=== PATIENT | female | born 1970 | race Caucasian/White ===

== ENCOUNTER 2019-11-17 15:09 | Outpatient (REF) | payer OTHER, SELFPAY ==
[2019-11-17 16:37] LABS: MANUAL DIFF FLAG NO
[2019-11-17 16:39] LABS: Basophils Absolute Auto 0.1 X10*3/uL (0.0-0.2); Basophils Percent Auto 1.2 % (0-2); Hematocrit 36.7 % (37-47); Hemoglobin 11.7 g/dl (12.0-16.0); Imm Gran Abs Auto 0.01 X10*3/uL (0.00-0.03); Imm Gran Pct Auto 0.2 % (0.0-0.4); Lymphocytes Absolute Auto 1.5 X10*3/uL (1.2-4.9); Lymphocytes Percent Auto 36.3 % (20-40); Mean Corpuscular HGB Conc 31.9 g/dl (31.0-35.0); Mean Corpuscular Hemoglobin 28.6 pg (27.0-33.0); Mean Corpuscular Volume 89.7 fL (80-98); Monocytes Absolute Auto 0.4 X10*3/uL (0.1-1.2); Monocytes Percent Auto 10.9 % (2-11); Neutrophils Percent Auto 50.4 % (45-73); Platelet Count 270 X10*3/uL (160-400); Red Blood Count 4.09 X10*6/uL (4.20-5.50); Red Cell Distribution Width 12.9 % (11.0-16.0)
[2019-11-17 17:07] LABS: Alanine Aminotransferase 25 U/L (0-31); Albumin Level 4.3 g/dL (3.5-5.0); Alkaline Phosphatase 85 U/L (39-117); Anion Gap 11 (12-20); Aspartate Amino Transferase 24 U/L (5-31); Bilirubin Total 0.5 mg/dL (0.0-1.0); Blood Urea Nitrogen 14 mg/dL (9-16); Calcium 9.3 mg/dL (8.4-10.2); Carbon Dioxide 29 mmol/L (22-29); Chloride 105 mmol/L (96-108); Estimated Glomerular Filt Rate > 60; Glucose Random 98 mg/dL (60-115); Sodium 141 mmol/L (135-145); Total Protein 7.2 g/dL (6.5-8.0)
[2019-11-17 17:29] LABS: TSH reflex Free T4 1.68 mIU/mL (0.32-4.0)
[2019-11-17 18:19] LABS: Vitamin B12 362 pg/mL (200-900)
== END 2019-11-17 15:10 | disposition home or self-care (01) ==
LOC: HO.HMGCLDS 15:09
PROVIDERS: PCP Internal Medicine; Visit Provider Internal Medicine
DX: R53.83 Other fatigue (principal); M54.12 Radiculopathy, cervical region; D51.0 Vitamin B12 deficiency anemia due to intrinsic factor deficiency
CPT/HCPCS: 36415; 80053; 82607; 84443; 85025

== ENCOUNTER 2020-06-04 14:08 | Outpatient (REF) | payer OTHER, SELFPAY ==
[2020-06-04 16:19] LABS: MANUAL DIFF FLAG NO
[2020-06-04 16:31] LABS: Basophils Percent Auto 0.8 % (0-2); Eosinophils Percent Auto 0.6 % (0-4); Hematocrit 36.2 % (37-47); Hemoglobin 11.5 g/dl (12.0-16.0); Imm Gran Abs Auto 0.01 X10*3/uL (0.00-0.03); Imm Gran Pct Auto 0.3 % (0.0-0.4); Lymphocytes Absolute Auto 0.8 X10*3/uL (1.2-4.9); Lymphocytes Percent Auto 21.3 % (20-40); Mean Corpuscular HGB Conc 31.8 g/dl (31.0-35.0); Mean Corpuscular Hemoglobin 28.1 pg (27.0-33.0); Mean Corpuscular Volume 88.5 fL (80-98); Mean Platelet Volume 10.9 fL (9.4-12.3); Monocytes Absolute Auto 0.3 X10*3/uL (0.1-1.2); Monocytes Percent Auto 9.1 % (2-11); Neutrophils Absolute Auto 2.5 X10*3/uL (2.0-8.3); Neutrophils Percent Auto 67.9 % (45-73); Platelet Count 294 X10*3/uL (160-400); Red Blood Count 4.09 X10*6/uL (4.20-5.50); White Blood Count 3.6 X10*3/uL (4.8-10.8)
[2020-06-04 16:53] LABS: Amphetamine Screen Urine Not Detected (Not Detect); Barbiturates, Urine Not Detected (Not Detect); Benzodiazepines Screen Urine Not Detected (Not Detect); Cannabinoid Screen Urine Not Detected (Not Detect); Cocaine Screen Urine Not Detected (Not Detect); Opiate Screen Urine Not Detected (Not Detect); Phencyclidine Screen Urine Not Detected (Not Detect)
[2020-06-04 16:57] LABS: Alanine Aminotransferase 12 U/L (0-31); Albumin Level 4.3 g/dL (3.5-5.0); Alkaline Phosphatase 92 U/L (39-117); Anion Gap 13 (12-20); Aspartate Amino Transferase 15 U/L (5-31); Bilirubin Direct 0.2 mg/dL (0.0-0.5); Bilirubin Total 0.3 mg/dL (0.0-1.0); Blood Urea Nitrogen 15 mg/dL (9-16); Calcium 9.1 mg/dL (8.4-10.2); Carbon Dioxide 25 mmol/L (22-29); Chloride 107 mmol/L (96-108); Estimated Glomerular Filt Rate > 60; Glucose Random 108 mg/dL (60-115); Sodium 141 mmol/L (135-145); Total Protein 7.1 g/dL (6.5-8.0)
[2020-06-04 17:19] LABS: TSH reflex Free T4 0.83 uIU/mL (0.32-4.0)
[2020-06-04 17:38] LABS: Vitamin B12 294 pg/mL (200-900)
[2020-06-08 06:47] LABS: Codeine, Ur NEGATIVE ng/mL (<50); Hydrocodone, Ur NEGATIVE ng/mL (<50); Hydromorphone, Ur NEGATIVE ng/mL (<50); Morphine, Ur NEGATIVE ng/mL (<50); Norhydrocodone, Ur NEGATIVE ng/mL (<50); Noroxycodone, Ur NEGATIVE ng/mL (<50); Oxycodone, Ur NEGATIVE ng/mL (<50); Oxymorphone, Ur NEGATIVE ng/mL (<50)
== END 2020-06-04 14:09 | disposition home or self-care (01) ==
LOC: HO.HMGCLDS 14:08
PROVIDERS: PCP Internal Medicine; Visit Provider Internal Medicine
DX: E53.8 Deficiency of other specified B group vitamins (principal); F11.20 Opioid dependence, uncomplicated; G89.4 Chronic pain syndrome; M54.12 Radiculopathy, cervical region; F33.41 Major depressive disorder, recurrent, in partial remission
CPT/HCPCS: 80048; 80076; 80307; 80364; 80365; 82607; 84443; 85025

== ENCOUNTER 2021-07-16 19:47 | Emergency (ER) | payer OTHER, SELFPAY ==
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
[2021-07-16 19:53] VITALS: BP 146/98; PULSE 114; O2SAT 100
[2021-07-16 19:59] VITALS: BP 158/111; PULSE 100; RESP 17; TEMP 37.2; O2SAT 99; BMI 19.0
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
--- NOTE | 2021-07-16 22:04 | PC.NURSE ---
PT REMOVED HARD COLLAR. REFUSES TO KEEP COLLAR ON. DR MCCRAY AWARE. PAIN MED REQUESTED WAITING MD ORDER.
[2021-07-16] MEDS: oxyCODONE HCl Immed Release 5 MG TABLET 10 MG PO (22:12)
[2021-07-16 22:21] VITALS: BP 154/74; PULSE 74; RESP 18; TEMP 36.8; O2SAT 100
== END 2021-07-16 23:20 | disposition home or self-care (01) ==
PROVIDERS: Emergency Provider Internal Medicine; PCP Internal Medicine
DX: S16.1XXA Strain of muscle, fascia and tendon at neck level, initial encounter (principal); S00.12XA Contusion of left eyelid and periocular area, initial encounter; D68.61 Antiphospholipid syndrome; Z86.718 Personal history of other venous thrombosis and embolism; Z79.01 Long term (current) use of anticoagulants; V89.2XXA Person injured in unspecified motor-vehicle accident, traffic, initial encounter; Y93.9 Activity, unspecified; Y92.410 Unspecified street and highway as the place of occurrence of the external cause; Y99.9 Unspecified external cause status
CPT/HCPCS: 70450; 72125; 99284

== ENCOUNTER 2021-11-02 15:51 | Outpatient (REF) | payer OTHER, SELFPAY ==
[2021-11-03 06:07] LABS: CT PCR NOT DETECTED (Not Detect.); NG PCR NOT DETECTED (Not Detect.)
[2021-11-03 13:11] LABS: BV Int Neg Control Negative (Negative); BV Int Pos Control Positive (Positive)
[2021-11-08 04:46] LABS: HPV mRNA E6/E7 rflx Detected (Not Detected)
[2021-11-08 04:56] LABS: HPV 16 RNA NOT DETECTED (NOT DETECTED)
== END 2021-11-02 15:52 | disposition home or self-care (01) ==
LOC: HO.LNP 15:51
PROVIDERS: Visit Provider Advanced Practice Midwife
DX: Z01.419 Encounter for gynecological examination (general) (routine) without abnormal findings (principal); Z11.51 Encounter for screening for human papillomavirus (HPV); Z11.3 Encounter for screening for infections with a predominantly sexual mode of transmission
CPT/HCPCS: 87480; 87491; 87510; 87591; 87624; 87625; 87660; 88142

== ENCOUNTER 2022-07-31 12:26 | Outpatient (REF) | payer OTHER, SELFPAY ==
[2022-07-31 14:06] LABS: MANUAL DIFF FLAG NO
[2022-07-31 14:20] LABS: Basophils Absolute Auto 0.1 X10*3/uL (0.0-0.2); Basophils Percent Auto 1.4 % (0-2); Eosinophils Absolute Auto 0.2 X10*3/uL (0.0-0.4); Eosinophils Percent Auto 4.1 % (0-4); Hemoglobin 11.7 g/dl (12.0-16.0); Imm Gran Abs Auto 0.01 X10*3/uL (0.00-0.03); Imm Gran Pct Auto 0.2 % (0.0-0.4); Lymphocytes Absolute Auto 1.3 X10*3/uL (1.2-4.9); Mean Corpuscular HGB Conc 32.5 g/dl (31.0-35.0); Mean Corpuscular Hemoglobin 28.1 pg (27.0-33.0); Mean Corpuscular Volume 86.5 fL (80.0-98.0); Mean Platelet Volume 11.8 fL (9.4-12.3); Monocytes Absolute Auto 0.6 X10*3/uL (0.1-1.2); Monocytes Percent Auto 13.5 % (2-11); Neutrophils Absolute Auto 2.1 x10*3/uL (2.0-8.3); Neutrophils Percent Auto 50.8 % (45-73); Platelet Count 246 X10*3/uL (160-400); Red Blood Count 4.16 X10*6/uL (4.20-5.50); Red Cell Distribution Width 13.2 % (11.0-16.0); White Blood Count 4.2 X10*3/uL (4.8-10.8)
[2022-07-31 14:39] LABS: Alanine Aminotransferase 13 U/L (0-31); Albumin Level 4.1 g/dL (3.5-5.0); Alkaline Phosphatase 95 U/L (39-117); Anion Gap 13 (12-20); Aspartate Amino Transferase 18 U/L (5-31); Bilirubin Total 0.5 mg/dL (0.0-1.0); Blood Urea Nitrogen 12 mg/dL (9-16); Calcium 9.2 mg/dL (8.4-10.2); Carbon Dioxide 25 mmol/L (22-29); Chloride 105 mmol/L (96-108); Estimated Glomerular Filt Rate > 60; Glucose Random 88 mg/dL (60-115); Potassium 3.6 mmol/L (3.3-5.1); Sodium 139 mmol/L (135-145); Total Protein 7.5 g/dL (6.5-8.0)
[2022-07-31 14:42] LABS: TSH reflex Free T4 1.12 uIU/mL (0.32-4.0)
[2022-07-31 14:53] LABS: Vitamin B12 698 pg/mL (200-900)
[2022-08-04 16:38] LABS: Vitamin D 25-OH, D2 <4 ng/mL; Vitamin D 25-OH, D3 15 ng/mL; Vitamin D 25-OH, Total 15 ng/mL (30-100)
== END 2022-07-31 12:27 | disposition home or self-care (01) ==
LOC: HO.HMGCLDS 12:26
PROVIDERS: PCP Internal Medicine; Visit Provider Internal Medicine
DX: E53.8 Deficiency of other specified B group vitamins (principal); F33.41 Major depressive disorder, recurrent, in partial remission; F41.1 Generalized anxiety disorder; M54.12 Radiculopathy, cervical region; M54.2 Cervicalgia; R10.13 Epigastric pain; G43.909 Migraine, unspecified, not intractable, without status migrainosus
CPT/HCPCS: 36415; 80053; 82306; 82607; 84443; 85025

== ENCOUNTER 2022-10-06 08:06 | Outpatient (AMB) | payer OTHER, SELFPAY ==
--- NOTE | 2022-10-06 08:07 | A.OFFPC_ITS ---
Intake Visit Reasons: 3m follow up migraines/ Android/[phone] Intake Note: Pt is here today for 3 months follow up visit. Allergies penicillin V Allergy (Unknown, Verified 10/06/22 08:09) unknown - childhood Penicillins Allergy (Unknown, Verified 10/06/22 08:09) unknown Medication List - Last Reconciled 10/06/22 by Latrell Restrepo MD alprazolam 0.5 mg PO BID 30 days amitriptyline 25 mg PO BEDTIME 90 days cyanocobalamin (vitamin B-12) 1,000 mcg subcut Q4W 30 days cyclobenzaprine 5 mg PO .qhs PRN 30 days enoxaparin (Lovenox) 60 mg (0.6 mL) subcut Q12H meclizine 25 mg PO DAILY PRN 90 days omeprazole 20 mg PO DAILY 90 days sumatriptan succinate 25 mg PO DAILY PRN 30 days venlafaxine ER 225 mg (3 x 75 mg) PO DAILY 90 days Tobacco use date assessed: 02/22/22 Dental Screening Dental Screen Date: 10/06/22 Did you have a dental visit in the last 12 months?: Yes Did you have a dental problem in the last 6 months where you did not have access to dental care?: No Was dental information given to patient?: Patient has dentist HPI 3m follow up migraines/ Android/[phone] HPI Details Patient is a 52-year-old female this is a telemedicine video conference follow-up Patient is feeling low these days, she says that she is in financial difficulty She is getting only 400 dollars per month that she is trying to live in She is homeless and has rented a room from a friend which is not in a good location and is not safe. Recently she also was found to have right breast lumps and she is due for biopsy which is already scheduled. She has applied for disability based on her lupus and major depression and anxiety. And is waiting on approval I have filled her cyclobenzaprine and alprazolam filled for next 3 months Patient is on alprazolam 0.5 mg b.i.d. and venlafaxine 150 mg, for anxiety B12 deficiency, and lupus management through hematology [facility].? Chronic cervicalgia with spasms, cyclobenzaprine 5 mg as needed.? GERD is stable with omeprazole 20 mg headaches: She is taking amitriptyline 25 mg at night Chronic dizziness stable with meclizine 25 mg Patient is also on Lovenox injections, through hematology for antiphospholipid syndrome Follow-up 3 months ? [facility] Medical History Antiphospholipid syndrome Anxiety, generalized Chronic pain Dyspepsia History of DVT (deep vein thrombosis) Hx of Sjogren's disease Irregular menses Knee pain, right Lupus (systemic lupus erythematosus) Major depression, recurrent Pain management Radiculopathy, cervical region Surgical History H/O LEEP History of salpingectomy Hx of cholecystectomy Family History Father Healthy male adult Mother Healthy female Maternal Grandfather Heart disease HTN (hypertension) Maternal Grandmother Breast cancer Paternal Grandfather No problems noted. Paternal Grandmother Breast cancer Diabetes mellitus Brother No problems noted. Sister No problems noted. Son No problems noted. Son No problems noted. Other Substance use disorder Social History Housing: Apartment Alcohol intake: current Alcohol intake frequency: a few times a month Patient Tobacco Use Status: Former Tobacco user Tobacco use type: Cigarette e-Cigarette/Vaping Use: Never Used Second Hand Smoke Exposure: No service: No Current occupational status: unemployed Current occupational exposures/hazards: No Cognitive needs: No Hearing needs: No Vision needs: No Female Reproductive History Menstrual Age of Menarche: 14 Questionnaire PHQ-9 Over the last 2 weeks, how often have you been bothered by any of the following problems? 1. Little interest or pleasure in doing things: nearly every day 2. Feeling down, depressed, or hopeless: nearly every day 3. Trouble falling or staying asleep, or sleeping too much: nearly every day 4. Feeling tired or having little energy: nearly every day 5. Poor appetite or overeating: nearly every day 6. Feeling bad about yourself - or that you are a failure or have let yourself or your family down: nearly every day 7. Trouble concentrating on things, such as reading the newspaper or watching television: more than half the days 8. Moving or speaking so slowly that other people could have noticed. Or the opposite - being so fidgety or restless that you have been moving around a lot more than usual: more than half the days 9. Thoughts that you would be better off or of hurting yourself in some way: several days Total score: 23 Depression Screening Interpretation: Positive 39908 - PHQ-9 Billing: Yes Source: Developed by Drs. Savage Ambriz, Annika Hansen, Chilo Zheng and colleagues, with an educational prince from [employer]. Thrive Questionnaire Date Thrive assessed: 02/22/22 AUDIT C Alcohol Use Questionnaire (AUDIT-C) 1. How often do you have a drink containing alcohol?: 2-4 times a month 2. How many drinks containing alcohol do you have on a typical day when you are drinking?: 1 or 2 3. How often do you have six or more drinks on one occasion?: Never Total Score: 2 FAMILIA-7 AMB Questionnaire FAMILIA-7 Date FAMILIA - 7 assessed: 02/08/21 Source: Developed by Drs. Savage Ambriz, Annika Hansen, Chilo Zheng and colleagues, with an educational prince from [employer]. Review of Systems Const Denies chills and Denies fever(s) ENT Denies epistaxis and Denies nasal discharge Card Denies chest pain Resp Denies chest congestion, Denies cough and Denies hemoptysis GI Denies diarrhea and Denies nausea Skin/Breast Denies rash Neuro Reports no additional complaints Psych Reports no additional complaints Endo Reports no additional complaints Physical exam (Primary Care) Tobacco/Smoking Status: Tobacco use Status Tobacco use date assessed 02/22/22 10/06/22 08:07 Patient Tobacco Use Status Former Tobacco user 10/06/22 08:07 Tobacco use type Cigarette 10/06/22 08:07 e-Cigarette/Vaping Use Never Used 10/06/22 08:07 PHQ-9: PHQ-9 Score PHQ-9: Total score 10/06/22 08:38 Depression Screening Interpretation: Positive Thrive Assessment: Date of Thrive Assessment Date Thrive assessed 02/22/22 10/06/22 08:07 Telehealth Telehealth Location of provider rendering services: practice address Location of patient: address on file Patient Identification confirmed using: Name, : Yes Telehealth method: video Patient verbally consented to treatment: Yes Patient verbally consented to billing insurance company: Yes Patient informed of any privacy concerns related to visit: Yes Assessment and Plan Assessment & Plan (1) Anxiety, generalized: Code(s): F41.1 - Generalized anxiety disorder (2) Radiculopathy, cervical region: Code(s): M54.12 - Radiculopathy, cervical region (3) Major depression, recurrent: Code(s): F33.9 - Major depressive disorder, recurrent, unspecified Qualifiers: Active/Remission status: in partial remission Qualified Code(s): F33.41 - Major depressive disorder, recurrent, in partial remission (4) Dyspepsia: Code(s): R10.13 - Epigastric pain (5) B12 deficiency: Code(s): E53.8 - Deficiency of other specified B group vitamins (6) Cervicalgia: Code(s): M54.2 - Cervicalgia (7) Migraine headache: Code(s): G43.909 - Migraine, unspecified, not intractable, without status migrainosus (8) Homeless: Code(s): Z59.00 - Homelessness unspecified Plan Patient is a 52-year-old female this is a telemedicine video conference follow- up Patient is feeling low these days, she says that she is in financial difficulty She is getting only 400 dollars per month that she is trying to live in She is homeless and has rented a room from a friend which is not in a good location and is not safe. Recently she also was found to have right breast lumps and she is due for biopsy which is already scheduled. She has applied for disability based on her lupus and major depression and anxiety. And is waiting on approval I have filled her cyclobenzaprine and alprazolam filled for next 3 months Patient is on alprazolam 0.5 mg b.i.d. and venlafaxine 150 mg, for anxiety B12 deficiency, and lupus management through hematology [facility].? Chronic cervicalgia with spasms, cyclobenzaprine 5 mg as needed.? GERD is stable with omeprazole 20 mg headaches: She is taking amitriptyline 25 mg at night Chronic dizziness stable with meclizine 25 mg Patient is also on Lovenox injections, through hematology for antiphospholipid syndrome Follow-up 3 months ? Medications: Refilled cyclobenzaprine 5 mg PO .qhs 30 days PRN 30 tabs 0RF muscle spasm G89.4 - Chronic pain syndrome, R52 - Pain, unspecified alprazolam 0.5 mg PO BID 60 tabs 2RF anxiety 30 days F41.1 - Generalized anxiety disorder amitriptyline 25 mg PO BEDTIME 90 days 90 tabs 0RF G43.909 - Migraine, unspecified, not intractable, without status migrainosus amitriptyline 25 mg PO BEDTIME 90 tabs 0RF 90 days G43.909 - Migraine, unspecified, not intractable, without status migrainosus cyclobenzaprine 5 mg PO .qhs PRN 30 tabs 0RF muscle spasm 30 days G89.4 - Chronic pain syndrome, R52 - Pain, unspecified Coding Level of Care Code Tele Est Pt Level 4 (82564) Diagnoses Anxiety, generalized F41.1 Radiculopathy, cervical region M54.12 Major depression, recurrent F33.41 Active/Remission status: in partial remission Dyspepsia R10.13 B12 deficiency E53.8 Cervicalgia M54.2 Migraine headache G43.909 Homeless Z59.00 Time Spent (min) 30 Comment 5 preparation, 15 with patient, 10 charting/meds
== END 2022-10-06 09:51 | disposition home or self-care (01) ==
LOC: HO.HMGC 08:06
PROVIDERS: PCP Internal Medicine; Visit Provider Internal Medicine
DX: G43.909 Migraine, unspecified, not intractable, without status migrainosus (principal); F33.41 Major depressive disorder, recurrent, in partial remission; F41.1 Generalized anxiety disorder; Z59.00 Homelessness unspecified; M54.12 Radiculopathy, cervical region; R10.13 Epigastric pain; E53.8 Deficiency of other specified B group vitamins; M54.2 Cervicalgia
CPT/HCPCS: 99214

== ENCOUNTER 2022-10-10 13:46 | Outpatient (REF) | payer OTHER, SELFPAY ==
--- NOTE | ~2022-10-10 | US_ITS ---
EXAMINATION: MM DIAGNOSTIC DIGITAL BREAST TOMOSYNTHESIS, BILATERAL US BREAST LIMITED, RIGHT MAMMOGRAPHY: CLINICAL INFORMATION: 52-year-old female complaining of palpable abnormality right breast 9:00 to 10:00 axis, middle one third. Patient also due for bilateral screening. COMPARISON: Mammography: 10/23/2016, 10/16/2016. TECHNIQUE: Digital breast tomosynthesis is performed in both the craniocaudal and mediolateral oblique views along with computer-aided detection (CAD). Synthesized 2D images are generated from the tomosynthesis. In addition, 3-D full-field digital right mediolateral view was performed, as well as 3-D small paddle spot compression digital right CC and MLO views, and a 3-D digital spot compression left CC view. FINDINGS: The breasts are heterogeneously dense, which may obscure small masses (ACR BI-RADS breast composition Category c). In the region of palpable concern, 10:00 axis right breast, 5 cm from the nipple, there is a circumscribed isodense mass measuring approximately 1.1 cm in diameter, correlating with the palpable abnormality. This will be evaluated with ultrasound. Otherwise, no additional suspicious abnormalities in the right breast. Benign-appearing stable calcifications noted in both breast axillary tail regions. A 1 view asymmetry seen in the left breast cc view only, mid depth along the nipple line completely effaces with additional views consistent with superimposition artifact of normal tissues. No suspicious findings of the left breast were identified. ULTRASOUND: CLINICAL INFORMATION: Right breast 10:00 palpable abnormality. COMPARISON: None TECHNIQUE: Targeted sonographic evaluation was performed using a high frequency linear transducer. Attention to the 10:00 axis, 5 cm from the nipple was performed as directed by the patient in the palpable focus of concern. Selected archived documentation. FINDINGS: RIGHT BREAST: Within the 10:00 axis of the right breast, 5 cm from the nipple, there is a cyst with low-level internal echoes, which on real-time imaging are mobile/floating, consistent with debris within a complicated cyst. No soft tissue elements identified. It is circumscribed with good through transmission. It measures 1.2 x 1.2 x 0.6 cm, and correlates well with the palpable focus of concern. No definite internal color Doppler flow. Finding is probably benign. 6 month interval follow-up right breast ultrasound and mammography recommended to ensure stability. US/US breast RT limited mamm only IMPRESSION: Probably benign complicated cyst right breast o'clock axis, correlating with the focus of palpable concern. Recommend six-month interval follow-up targeted right breast ultrasound, as well as 6 month follow-up right 3-D cc and MLO full field views. There are no suspicious findings of the left breast. Stable benign findings bilaterally. OVERALL ASSESSMENT: Mammography: BI-RADS 3 - Probably benign finding(s) - 6 month follow-up suggested Ultrasound: BI-RADS 3 - Probably benign finding(s) - 6 month follow-up suggested RECOMMENDATION: 6 Month F/U Results were provided to the patient at time of visit by the technologist. This patient's information was entered into a reminder system with a target due date for their next mammogram.
== END 2022-10-10 13:47 | disposition home or self-care (01) ==
LOC: HO.MAMMO 13:46
PROVIDERS: PCP Internal Medicine; Visit Provider Advanced Practice Midwife
DX: N63.15 Unspecified lump in the right breast, overlapping quadrants (principal)
CPT/HCPCS: 76642; 77062; 77066

== ENCOUNTER → 2022-10-10 13:48 | Outpatient (BNV) | payer OTHER, SELFPAY | PROVIDERS: PCP Internal Medicine; Visit Provider Radiology Diagnostic Radiology | DX: N63.10 Unspecified lump in the right breast, unspecified quadrant (principal) | CPT/HCPCS: 76642; 77062; 77066 ==

== ENCOUNTER 2023-01-05 13:48 | Outpatient (AMB) | payer OTHER, SELFPAY ==
--- NOTE | 2023-01-05 13:52 | A.OFFPC_ITS ---
Intake Visit Reasons: 3M Follow up on meds, Allergies penicillin V Allergy (Unknown, Verified 01/05/23 13:52) unknown - childhood Penicillins Allergy (Unknown, Verified 01/05/23 13:52) unknown Medication List - Last Reconciled 01/05/23 by Latrell Restrepo MD alprazolam 0.5 mg PO BID 30 days amitriptyline 25 mg PO BEDTIME 90 days cyanocobalamin (vitamin B-12) 1,000 mcg subcut Q4W 30 days cyclobenzaprine 5 mg PO .qhs PRN 30 days enoxaparin (Lovenox) 60 mg (0.6 mL) subcut Q12H enoxaparin 60 mg (0.6 mL) subcut Q12H meclizine 25 mg PO DAILY PRN 90 days omeprazole 20 mg PO DAILY 90 days sumatriptan succinate 25 mg PO DAILY PRN 30 days venlafaxine ER 225 mg (3 x 75 mg) PO DAILY 90 days Tobacco use date assessed: 01/05/23 Dental Screening Dental Screen Date: 01/05/23 Did you have a dental visit in the last 12 months?: No Did you have a dental problem in the last 6 months where you did not have access to dental care?: No Was dental information given to patient?: Patient has dentist HPI 3M Follow up on [facility], HPI Details Patient is a 52-year-old female this is a telemedicine video conference follow-up She is homeless and has rented a room from a friend which is not in a good location and is not safe. I have filled her cyclobenzaprine and alprazolam filled for next 3 months Patient is on alprazolam 0.5 mg b.i.d. and venlafaxine 150 mg, for anxiety B12 deficiency, and lupus management through hematology [facility].? Chronic cervicalgia with spasms, cyclobenzaprine 5 mg as needed.? GERD is stable with omeprazole 20 mg headaches: She is taking amitriptyline 25 mg at night Chronic dizziness stable with meclizine 25 mg Patient is also on Lovenox injections, through hematology for antiphospholipid syndrome Follow-up 3 months ? [facility] Medical History Knee pain, right Irregular menses Chronic pain Anxiety, generalized Hx of Sjogren's disease Radiculopathy, cervical region Antiphospholipid syndrome Major depression, recurrent Dyspepsia History of DVT (deep vein thrombosis) Lupus (systemic lupus erythematosus) Pain management Surgical History Hx of cholecystectomy History of salpingectomy H/O LEEP Family History Father Healthy male adult Mother Healthy female Maternal Grandfather Heart disease HTN (hypertension) Maternal Grandmother Breast cancer Paternal Grandfather No problems noted. Paternal Grandmother Breast cancer Diabetes mellitus Brother No problems noted. Sister No problems noted. Son No problems noted. Son No problems noted. Other Substance use disorder Social History Housing: Apartment Alcohol intake: current Alcohol intake frequency: a few times a month Patient Tobacco Use Status: Former Tobacco user Tobacco use type: Cigarette e-Cigarette/Vaping Use: Never Used Second Hand Smoke Exposure: No service: No Current occupational status: unemployed Current occupational exposures/hazards: No Cognitive needs: No Hearing needs: No Vision needs: No Female Reproductive History Menstrual Age of Menarche: 14 Questionnaire Thrive Questionnaire Date Thrive assessed: 02/22/22 AUDIT C Alcohol Use Questionnaire (AUDIT-C) 1. How often do you have a drink containing alcohol?: 2-4 times a month 2. How many drinks containing alcohol do you have on a typical day when you are drinking?: 1 or 2 3. How often do you have six or more drinks on one occasion?: Never Total Score: 2 FAMILIA-7 AMB Questionnaire FAMILIA-7 Date FAMILIA - 7 assessed: 02/08/21 Source: Developed by Drs. Savage Ambriz, Annika Hansen, Chilo Zheng and colleagues, with an educational prince from [email or web address]. Review of Systems Const Denies chills and Denies fever(s) ENT Denies epistaxis and Denies nasal discharge Card Denies chest pain Resp Denies chest congestion, Denies cough and Denies hemoptysis GI Denies diarrhea and Denies nausea Skin/Breast Denies rash Neuro Reports no additional complaints Psych Reports no additional complaints Endo Reports no additional complaints Physical exam (Primary Care) Tobacco/Smoking Status: Tobacco use Status Tobacco use date assessed 01/05/23 01/05/23 13:54 Patient Tobacco Use Status Former Tobacco user 01/05/23 13:54 Tobacco use type Cigarette 01/05/23 13:54 e-Cigarette/Vaping Use Never Used 01/05/23 13:54 Thrive Assessment: Date of Thrive Assessment Date Thrive assessed 02/22/22 01/05/23 13:54 Telehealth Telehealth Location of provider rendering services: practice address Location of patient: address on file Patient Identification confirmed using: Name, : Yes Telehealth method: voice only Patient verbally consented to treatment: Yes Patient verbally consented to billing insurance company: Yes Patient informed of any privacy concerns related to visit: Yes Minutes spent on Phone/Video with Pt.: 20 Assessment and Plan Assessment & Plan (1) Homeless: Code(s): Z59.00 - Homelessness unspecified (2) B12 deficiency: Code(s): E53.8 - Deficiency of other specified B group vitamins (3) Major depression, recurrent: Code(s): F33.9 - Major depressive disorder, recurrent, unspecified Qualifiers: Active/Remission status: in partial remission Qualified Code(s): F33.41 - Major depressive disorder, recurrent, in partial remission (4) Lupus (systemic lupus erythematosus): Code(s): M32.9 - Systemic lupus erythematosus, unspecified Qualifiers: Systemic lupus erythematosus type: other Systemic lupus erythematosus organ involvement: other Qualified Code(s): M32.19 - Other organ or system involvement in systemic lupus erythematosus (5) Antiphospholipid syndrome: Code(s): D68.61 - Antiphospholipid syndrome (6) Anxiety, generalized: Code(s): F41.1 - Generalized anxiety disorder (7) Radiculopathy, cervical region: Code(s): M54.12 - Radiculopathy, cervical region (8) Dyspepsia: Code(s): R10.13 - Epigastric pain (9) Cervicalgia: Code(s): M54.2 - Cervicalgia (10) Migraine headache: Code(s): G43.909 - Migraine, unspecified, not intractable, without status migrainosus Qualifiers: Migraine type: periodic headache syndrome Intractability: intractable Qualified Code(s): G43.C1 - Periodic headache syndromes in child or adult, int ractable Plan Patient is a 52-year-old female this is a telemedicine video conference follow- up She is homeless and has rented a room from a friend which is not in a good location and is not safe. I have filled her cyclobenzaprine and alprazolam filled for next 3 months Patient is on alprazolam 0.5 mg b.i.d. and venlafaxine 150 mg, for anxiety B12 deficiency, and lupus management through hematology [facility].? Chronic cervicalgia with spasms, cyclobenzaprine 5 mg as needed.? GERD is stable with omeprazole 20 mg headaches: She is taking amitriptyline 25 mg at night Chronic dizziness stable with meclizine 25 mg Patient is also on Lovenox injections, through hematology for antiphospholipid syndrome Follow-up 3 months ? Orders: Orders Vitamin B12 Today D68.61 - Antiphospholipid syndrome, E53.8 - Deficiency of other specified B group vitamins, F33.9 - Major depressive disorder, recurrent, unspecified, M32.9 - Systemic lupus erythematosus, unspecified, Z59.00 - Homelessness unspecified TSH reflex Free T4 Today D68.61 - Antiphospholipid syndrome, E53.8 - Deficiency of other specified B group vitamins, F33.9 - Major depressive disorder, recurrent, unspecified, M32.9 - Systemic lupus erythematosus, unspecified, Z59.00 - Homelessness unspecified Medications: New triamcinolone acetonide 0.1% 1 appl topical DAILY 80 grams 0RF 30 days Refilled amitriptyline 25 mg PO BEDTIME 90 days 90 tabs 0RF G43.909 - Migraine, unspecified, not intractable, without status migrainosus meclizine 25 mg PO DAILY 90 days PRN 90 tabs 0RF dizziness omeprazole 20 mg PO DAILY 90 days 90 caps 1RF alprazolam 0.5 mg PO BID 30 days 60 tabs 2RF anxiety F41.1 - Generalized anxiety disorder cyanocobalamin (vitamin B-12) 1,000 mcg subcut Q4W 30 days 1 mL 11RF E53.8 - Deficiency of other specified B group vitamins cyclobenzaprine 5 mg PO .qhs 30 days PRN 30 tabs 0RF muscle spasm G89.4 - Chronic pain syndrome, R52 - Pain, unspecified sumatriptan succinate 25 mg PO DAILY 30 days PRN 9 tabs 2RF for migraine venlafaxine ER 225 mg (3 x 75 mg) PO DAILY 90 days 270 caps 3RF Coding Level of Care Code Tele Est Pt Level 4 (20130) Diagnoses Homeless Z59.00 B12 deficiency E53.8 Recurrent major depressive disorder, in partial remission F33.41 Active/Remission status: in partial remission Other systemic lupus erythematosus with other organ involvement M32.19 Systemic lupus erythematosus type: other Systemic lupus erythematosus organ involvement: other Antiphospholipid syndrome D68.61 Anxiety, generalized F41.1 Radiculopathy, cervical region M54.12 Dyspepsia R10.13 Cervicalgia M54.2 Intractable periodic headache syndrome G43.C1 Migraine type: periodic headache syndrome Intractability: intractable
== END 2023-01-05 15:25 | disposition home or self-care (01) ==
LOC: HO.HMGC 13:48
PROVIDERS: PCP Internal Medicine; Visit Provider Internal Medicine
DX: M32.19 Other organ or system involvement in systemic lupus erythematosus (principal); F33.41 Major depressive disorder, recurrent, in partial remission; D68.61 Antiphospholipid syndrome; Z59.00 Homelessness unspecified; E53.8 Deficiency of other specified B group vitamins; F41.1 Generalized anxiety disorder; M54.12 Radiculopathy, cervical region; R10.13 Epigastric pain; M54.2 Cervicalgia; G43.C1 Periodic headache syndromes in child or adult, intractable
CPT/HCPCS: 99214

== ENCOUNTER 2023-04-06 10:50 | Outpatient (AMB) | payer OTHER, SELFPAY ==
--- NOTE | 2023-04-06 10:51 | MHC.PC.OV ---
Vital Signs 04/06/23 11:03 Height 4 ft 10 in Weight 114 lb 2 oz BMI 23.8 BP 128/82 Blood Pressure Location Rt brachial Position Sitting Pulse 85 Pulse Source Pulse Oximeter Pulse Oximetry (%) 96 Oxygen Delivery Method Room Air Intake Visit Reasons: 3M F/u~ Allergies penicillin V Allergy (Unknown, Verified 04/06/23 10:52) unknown - childhood Penicillins Allergy (Unknown, Verified 04/06/23 10:52) unknown Medication List - Last Reconciled 04/06/23 by Latrell Restrepo MD alprazolam 0.5 mg PO BID 30 days amitriptyline 25 mg PO BEDTIME 90 days cyanocobalamin (vitamin B-12) 1,000 mcg subcut Q4W 30 days cyclobenzaprine 5 mg PO .qhs PRN enoxaparin (Lovenox) 60 mg (0.6 mL) subcut Q12H enoxaparin 60 mg (0.6 mL) subcut Q12H meclizine 25 mg PO DAILY PRN 90 days omeprazole 20 mg PO DAILY 90 days sumatriptan succinate 25 mg PO DAILY PRN 30 days triamcinolone acetonide 0.1% 1 appl topical DAILY 30 days venlafaxine ER 225 mg (3 x 75 mg) PO DAILY 90 days Tobacco use date assessed: 04/06/23 Dental Screening Dental Screen Date: 04/06/23 Did you have a dental visit in the last 12 months?: Yes Did you have a dental problem in the last 6 months where you did not have access to dental care?: No Was dental information given to patient?: Patient has dentist HPI 3M F/u~ HPI Details Z pack Patient is a 52-year-old female came in today for her regular three-month follow-up appointment for medication refill Patient says that she almost passed out yesterday when she got up suddenly She is blaming the rug for the fall She encountered a superficial abrasion on her nose which seems to be healing well She has been able to gain some weight, however she is homeless She will be meeting with our behavior health coordinator so we can help her find a place Also have sinus infection and is She is homeless and has rented a room from a friend which is not in a good location and is not safe. I have filled her cyclobenzaprine and alprazolam filled for next 3 months Patient is on alprazolam 0.5 mg b.i.d. and venlafaxine 150 mg, for anxiety B12 deficiency, and lupus management through hematology [facility].? Chronic cervicalgia with spasms, cyclobenzaprine 5 mg as needed.? GERD is stable with omeprazole 20 mg headaches: She is taking amitriptyline 25 mg at night Chronic dizziness stable with meclizine 25 mg Patient is also on Lovenox injections, through hematology for antiphospholipid syndrome Follow-up 3 months ? COUNTS INCLUDE 234 BEDS AT [facility] Medical History Knee pain, right Irregular menses Chronic pain Anxiety, generalized Hx of Sjogren's disease Radiculopathy, cervical region Antiphospholipid syndrome Major depression, recurrent Dyspepsia History of DVT (deep vein thrombosis) Lupus (systemic lupus erythematosus) Pain management Surgical History Hx of cholecystectomy History of salpingectomy H/O LEEP Family History Father Healthy male adult Mother Healthy female Maternal Grandfather Heart disease HTN (hypertension) Maternal Grandmother Breast cancer Paternal Grandfather No problems noted. Paternal Grandmother Breast cancer Diabetes mellitus Brother No problems noted. Sister No problems noted. Son No problems noted. Son No problems noted. Other Substance use disorder Social History Housing: Apartment Alcohol intake: current Alcohol intake frequency: a few times a month Patient Tobacco Use Status: Former Tobacco user Tobacco use type: Cigarette e-Cigarette/Vaping Use: Never Used Second Hand Smoke Exposure: No service: No Current occupational status: unemployed Current occupational exposures/hazards: No Cognitive needs: No Hearing needs: No Vision needs: No Female Reproductive History Menstrual Age of Menarche: 14 Questionnaire Thrive Questionnaire Date Thrive assessed: 02/22/22 AUDIT C Alcohol Use Questionnaire (AUDIT-C) 1. How often do you have a drink containing alcohol?: 2-4 times a month 2. How many drinks containing alcohol do you have on a typical day when you are drinking?: 1 or 2 3. How often do you have six or more drinks on one occasion?: Never Total Score: 2 Score Reviewed/Action Taken: Yes FAMILIA-7 AMB Questionnaire FAMILIA-7 Date FAMILIA - 7 assessed: 02/08/21 Source: Developed by Drs. Savage Ambriz, Annika Hansen, Chilo Zheng and colleagues, with an educational prince from [employer]. Review of Systems Const Denies chills and Denies fever(s) ENT Denies epistaxis and Denies nasal discharge Card Denies chest pain Resp Denies chest congestion, Denies cough and Denies hemoptysis GI Denies diarrhea and Denies nausea Skin/Breast Denies rash Neuro Reports no additional complaints Psych Reports no additional complaints Endo Reports no additional complaints Physical exam (Primary Care) Vital Signs: Last Vital Signs Pulse 85 04/06/23 11:03 BP 128/82 04/06/23 11:03 Pulse Ox 96 04/06/23 11:03 Oxygen Delivery Method Room Air 04/06/23 11:03 BMI result Body Mass Index 23.8 Tobacco/Smoking Status: Tobacco use Status Tobacco use date assessed 04/06/23 04/06/23 10:53 Patient Tobacco Use Status Former Tobacco user 04/06/23 10:53 Tobacco use type Cigarette 04/06/23 10:53 e-Cigarette/Vaping Use Never Used 04/06/23 10:53 Thrive Assessment: Date of Thrive Assessment Date Thrive assessed 02/22/22 04/06/23 10:53 Const General: cooperative, comfortable and no acute distress Orientation/consciousness: patient oriented x3 HENMT Head: Yes normocephalic Eyes General: appearance normal, both eyes and all related structures Neck Neck: Yes supple Resp Effort & Inspection: normal respiratory effort, no cough and no stridor Cardio Rhythm: regular rhythm Heart sounds: S1 normal heart sound present and S2 normal heart sound present Skin General skin exam: turgor normal Neuro General: patient oriented x3, tone normal and moves all extremities Extrem Right lower extremity: no edema Left lower extremity: no edema Assessment and Plan Assessment & Plan (1) Homeless: Code(s): Z59.00 - Homelessness unspecified (2) Major depression, recurrent: Code(s): F33.9 - Major depressive disorder, recurrent, unspecified Qualifiers: Active/Remission status: in partial remission Qualified Code(s): F33.41 - Major depressive disorder, recurrent, in partial remission (3) B12 deficiency: Code(s): E53.8 - Deficiency of other specified B group vitamins (4) Lupus (systemic lupus erythematosus): Code(s): M32.9 - Systemic lupus erythematosus, unspecified Qualifiers: Systemic lupus erythematosus organ involvement: other Systemic lupus erythematosus type: other Qualified Code(s): M32.19 - Other organ or system involvement in systemic lupus erythematosus (5) Anxiety, generalized: Code(s): F41.1 - Generalized anxiety disorder (6) Major depression, recurrent: Code(s): F33.9 - Major depressive disorder, recurrent, unspecified Qualifiers: Active/Remission status: in partial remission Qualified Code(s): F33.41 - Major depressive disorder, recurrent, in partial remission (7) Antiphospholipid syndrome: Code(s): D68.61 - Antiphospholipid syndrome (8) Radiculopathy, cervical region: Code(s): M54.12 - Radiculopathy, cervical region (9) Dyspepsia: Code(s): R10.13 - Epigastric pain (10) Migraine headache: Code(s): G43.909 - Migraine, unspecified, not intractable, without status migrainosus Qualifiers: Intractability: intractable Migraine type: periodic headache syndrome Qualified Code(s): G43.C1 - Periodic headache syndromes in child or adult, intractable (11) Pre-syncope: Code(s): R55 - Syncope and collapse Plan Patient is a 52-year-old female came in today for her regular three-month follow-up appointment for medication refill Patient says that she almost passed out yesterday when she got up suddenly She is blaming the rug for the fall She encountered a superficial abrasion on her nose which seems to be healing well She has been able to gain some weight, however she is homeless She will be meeting with our behavior health coordinator so we can help her find a place Also have sinus infection and is blowing out yellow green phlegm Has chronic pain I have filled her cyclobenzaprine and alprazolam filled for next 3 months Patient is on alprazolam 0.5 mg b.i.d. and venlafaxine 150 mg, for anxiety B12 deficiency, and lupus management through hematology [facility].? GERD is stable with omeprazole 20 mg headaches: She is taking amitriptyline 25 mg at night Chronic dizziness stable with meclizine 25 mg Patient is also on Lovenox injections, through hematology for antiphospholipid syndrome Follow-up 3 months ? Orders: Orders Comprehensive Met. Panel Today E53.8 - Deficiency of other specified B group vitamins, F33.9 - Major depressive disorder, recurrent, unspecified, F41.1 - Generalized anxiety disorder, M32.9 - Systemic lupus erythematosus, unspecified, M47.812 - Spondylosis without myelopathy or radiculopathy, cervical region, Z59.00 - Homelessness unspecified LDL Cholesterol Direct Today E53.8 - Deficiency of other specified B group vitamins, F33.9 - Major depressive disorder, recurrent, unspecified, F41.1 - Generalized anxiety disorder, M32.9 - Systemic lupus erythematosus, unspecified, M47.812 - Spondylosis without myelopathy or radiculopathy, cervical region, Z59.00 - Homelessness unspecified Vitamin D 25-OH (D2 and D3) Today E53.8 - Deficiency of other specified B group vitamins, F33.9 - Major depressive disorder, recurrent, unspecified, F41.1 - Generalized anxiety disorder, M32.9 - Systemic lupus erythematosus, unspecified, M47.812 - Spondylosis without myelopathy or radiculopathy, cervical region, Z59.00 - Homelessness unspecified TSH reflex Free T4 Today E53.8 - Deficiency of other specified B group vitamins, F33.9 - Major depressive disorder, recurrent, unspecified, F41.1 - Generalized anxiety disorder, M32.9 - Systemic lupus erythematosus, unspecified, M47.812 - Spondylosis without myelopathy or radiculopathy, cervical region, Z59.00 - Homelessness unspecified Complete Blood Count Auto Diff Today E53.8 - Deficiency of other specified B group vitamins, F33.9 - Major depressive disorder, recurrent, unspecified, F41.1 - Generalized anxiety disorder, M32.9 - Systemic lupus erythematosus, unspecified, M47.812 - Spondylosis without myelopathy or radiculopathy, cervical region, Z59.00 - Homelessness unspecified Vitamin B12 Today E53.8 - Deficiency of other specified B group vitamins, F33.9 - Major depressive disorder, recurrent, unspecified, F41.1 - Generalized anxiety disorder, M32.9 - Systemic lupus erythematosus, unspecified, M47.812 - Spondylosis without myelopathy or radiculopathy, cervical region, Z59.00 - Homelessness unspecified Magnesium Today E53.8 - Deficiency of other specified B group vitamins, F33.9 - Major depressive disorder, recurrent, unspecified, F41.1 - Generalized anxiety disorder, M32.9 - Systemic lupus erythematosus, unspecified, M47.812 - Spondylosis without myelopathy or radiculopathy, cervical region, Z59.00 - Homelessness unspecified Drug Screen Urine Today R55 - Syncope and collapse Medications: New azithromycin Take 2 tablets today then 1 daily 250 mg PO ONCE 6 tabs 0RF 5 days J06.9 - Acute upper respiratory infection, unspecified Refilled amitriptyline 25 mg PO BEDTIME 90 tabs 0RF 90 days G43.909 - Migraine, unspecified, not intractable, without status migrainosus omeprazole 20 mg PO DAILY 90 caps 1RF 90 days venlafaxine ER 225 mg (3 x 75 mg) PO DAILY 270 caps 3RF 90 days alprazolam 0.5 mg PO BID 60 tabs 2RF anxiety 30 days F41.1 - Generalized anxiety disorder meclizine 25 mg PO DAILY PRN 90 tabs 0RF dizziness 90 days sumatriptan succinate 25 mg PO DAILY PRN 9 tabs 2RF for migraine 30 days Coding Level of Care Code Est Pt Level 4 (87108) Diagnoses Homeless Z59.00 Recurrent major depressive disorder, in partial remission F33.41 Active/Remission status: in partial remission B12 deficiency E53.8 Other systemic lupus erythematosus with other organ involvement M32.19 Systemic lupus erythematosus organ involvement: other Systemic lupus erythematosus type: other Anxiety, generalized F41.1 Antiphospholipid syndrome D68.61 Radiculopathy, cervical region M54.12 Dyspepsia R10.13 Intractable periodic headache syndrome G43.C1 Intractability: intractable Migraine type: periodic headache syndrome Pre-syncope R55
[2023-04-06 11:03] VITALS: BP 128/82; PULSE 85; O2SAT 96; BMI 23.8
== END 2023-04-06 11:31 | disposition home or self-care (01) ==
PROVIDERS: PCP Internal Medicine; Visit Provider Internal Medicine
DX: M32.19 Other organ or system involvement in systemic lupus erythematosus (principal); F33.41 Major depressive disorder, recurrent, in partial remission; D68.61 Antiphospholipid syndrome; F11.20 Opioid dependence, uncomplicated; Z59.00 Homelessness unspecified; E53.8 Deficiency of other specified B group vitamins; F41.1 Generalized anxiety disorder; M54.12 Radiculopathy, cervical region; R10.13 Epigastric pain; G43.C1 Periodic headache syndromes in child or adult, intractable; R55 Syncope and collapse
CPT/HCPCS: 99214

== ENCOUNTER 2023-07-20 12:22 | Outpatient (AMB) | payer OTHER, SELFPAY ==
--- NOTE | 2023-07-20 12:25 | A.OFFPC_ITS ---
Vital Signs 07/20/23 12:27 Height 4 ft 10 in Weight 115 lb BMI 24.0 BP 104/68 Blood Pressure Location Rt brachial Position Sitting Pulse 66 Pulse Source Pulse Oximeter Pulse Oximetry (%) 98 Oxygen Delivery Method Room Air Intake Visit Reasons: 3M F/u~ Allergies penicillin V Allergy (Unknown, Verified 07/20/23 12:28) unknown - childhood Penicillins Allergy (Unknown, Verified 07/20/23 12:28) unknown Medication List - Last Reconciled 07/20/23 by Latrell Restrepo MD alprazolam 0.5 mg PO BID 10 days amitriptyline 25 mg PO BEDTIME 90 days cyanocobalamin (vitamin B-12) 1,000 mcg subcut Q4W 30 days cyclobenzaprine 5 mg PO .qhs PRN enoxaparin (Lovenox) 60 mg (0.6 mL) subcut Q12H enoxaparin 60 mg (0.6 mL) subcut Q12H meclizine 25 mg PO DAILY PRN 90 days omeprazole 20 mg PO DAILY 90 days sumatriptan succinate 25 mg PO DAILY PRN 30 days triamcinolone acetonide 0.1% 1 appl topical DAILY 30 days venlafaxine ER 225 mg (3 x 75 mg) PO DAILY 90 days Tobacco use date assessed: 04/06/23 Dental Screening Dental Screen Date: 04/06/23 HPI 3M F/u~ HPI Details Patient is a 53-year-old female came in today for her regular three-month follow-up appointment for medication refill Patient was finally able to rent a room with an old lady She is helping her out with groceries However she still have very limited financial resources She has been approved for disability but will not be able to get it checked for another 4-6 months. Suffers from chronic neck pain Patient is also very anxious and is taking medication for that I have filled her cyclobenzaprine and alprazolam filled for next 3 months Patient is on alprazolam 0.5 mg b.i.d. and venlafaxine 150 mg B12 deficiency, and lupus management through hematology [facility].? Patient is also on Lovenox injections, through hematology for antiphospholipid syndrome GERD is stable with omeprazole 20 mg headaches: She is taking amitriptyline 25 mg at night Chronic dizziness stable with meclizine 25 mg Last time she had lab was last year, reminded again to have them done today Follow-up 3 months ? [facility] Medical History Knee pain, right Irregular menses Chronic pain Anxiety, generalized Hx of Sjogren's disease Radiculopathy, cervical region Antiphospholipid syndrome Major depression, recurrent Dyspepsia History of DVT (deep vein thrombosis) Lupus (systemic lupus erythematosus) Pain management Surgical History Hx of cholecystectomy History of salpingectomy H/O LEEP Family History Father Healthy male adult Mother Healthy female Maternal Grandfather Heart disease HTN (hypertension) Maternal Grandmother Breast cancer Paternal Grandfather No problems noted. Paternal Grandmother Breast cancer Diabetes mellitus Brother No problems noted. Sister No problems noted. Son No problems noted. Son No problems noted. Other Substance use disorder Social History Housing: Apartment Alcohol intake: current Alcohol intake frequency: a few times a month Patient Tobacco Use Status: Former Tobacco user Tobacco use type: Cigarette e-Cigarette/Vaping Use: Never Used Second Hand Smoke Exposure: No service: No Current occupational status: unemployed Current occupational exposures/hazards: No Cognitive needs: No Hearing needs: No Vision needs: No Female Reproductive History Menstrual Age of Menarche: 14 Questionnaire PHQ-9 Over the last 2 weeks, how often have you been bothered by any of the following problems? 1. Little interest or pleasure in doing things: nearly every day 2. Feeling down, depressed, or hopeless: nearly every day 3. Trouble falling or staying asleep, or sleeping too much: nearly every day 4. Feeling tired or having little energy: nearly every day 5. Poor appetite or overeating: several days 6. Feeling bad about yourself - or that you are a failure or have let yourself or your family down: nearly every day 7. Trouble concentrating on things, such as reading the newspaper or watching television: more than half the days 8. Moving or speaking so slowly that other people could have noticed. Or the opposite - being so fidgety or restless that you have been moving around a lot more than usual: more than half the days 9. Thoughts that you would be better off or of hurting yourself in some way: several days Total score: 21 Depression Screening Interpretation: Positive Depression Screening Follow-up: Existing condition and In treatment Depression Screening Done: Yes 55780 - PHQ-9 Billing: Yes Source: Developed by Drs. Savage Ambriz, Annika Hansen, Chilo Zheng and colleagues, with an educational prince from [employer]. Thrive Questionnaire Date Thrive assessed: 07/20/23 I am a: Patient What is your living situation today?: I have a place to live, but I am worried about losing it in the future Within the past 12 months, did the food you bought not last and you didn't have the money to get more?: Often true Within the past 12 months, did you worry whether your food would run out before you got money to buy more?: Often true Do you have trouble paying for medicines?: No Do you have trouble getting transportation to medical appointments?: Yes Do you have trouble paying your heating and electricity bill?: Yes Do you have trouble taking care of your child, family member or friend?: No Do you have trouble with day-to-day activities such as bathing, preparing meals, shopping, managing finances, etc.?: Yes Are you currently unemployed and looking for a job?: No Are you interested in more education?: No Currently or been in a relationship where the following occur: I choose not to answer this question THRIVE Score: 5 AUDIT C Alcohol Use Questionnaire (AUDIT-C) 1. How often do you have a drink containing alcohol?: Never 3. How often do you have six or more drinks on one occasion?: Never Total Score: 0 Score Reviewed/Action Taken: No FAMILIA-7 AMB Questionnaire FAMILIA-7 Date FAMILIA - 7 assessed: 07/20/23 Feeling nervous, anxious, or on edge: 3 = Nearly every day Not being able to stop or control worryin = Nearly every day Worrying too much about different things: 2 = More than half the days Trouble relaxin = More than half the days Being so restless that it is hard to sit still: 2 = More than half the days Becoming easily annoyed or irritable: 2 = More than half the days Feeling afraid as if something awful might happen: 1 = Several days Total FAMILIA-7 score (0-4 normal; 5-9 mild; 10-14 moderate; 15-21 severe): 15 Source: Developed by Drs. Savage Ambriz, Annika Hansen, Chilo Zheng and colleagues, with an educational prince from [employer]. FAMILIA-7 Assessment Billing FAMILIA-7 Assessment Tool: FAMILIA-7 Assessment 66759 Review of Systems Const Denies chills and Denies fever(s) ENT Denies epistaxis and Denies nasal discharge Card Denies chest pain Resp Denies chest congestion, Denies cough and Denies hemoptysis GI Denies diarrhea and Denies nausea Skin/Breast Denies rash Neuro Reports no additional complaints Psych Reports no additional complaints Endo Reports no additional complaints Physical exam (Primary Care) Vital Signs: Last Vital Signs Pulse 66 07/20/23 12:27 BP 104/68 07/20/23 12:27 Pulse Ox 98 07/20/23 12:27 Oxygen Delivery Method Room Air 07/20/23 12:27 BMI result Body Mass Index 24.0 Tobacco/Smoking Status: Tobacco use Status Tobacco use date assessed 04/06/23 07/20/23 12:26 Patient Tobacco Use Status Former Tobacco user 07/20/23 12:26 Tobacco use type Cigarette 07/20/23 12:26 e-Cigarette/Vaping Use Never Used 07/20/23 12:26 PHQ-9: PHQ-9 Score PHQ-9: Total score 21 07/20/23 13:08 Depression Screening Interpretation: Positive Depression Screening Follow-up: Existing condition and In treatment Thrive Assessment: Date of Thrive Assessment Date Thrive assessed 07/20/23 07/20/23 13:08 Currently or been in a relationship where the following occur: I choose not to answer this question Const General: cooperative, comfortable and no acute distress Orientation/consciousness: patient oriented x3 HENMT Head: Yes normocephalic Eyes General: appearance normal, both eyes and all related structures Resp Effort & Inspection: normal respiratory effort, no cough and no stridor Cardio Rhythm: regular rhythm Heart sounds: S1 normal heart sound present and S2 normal heart sound present Skin General skin exam: turgor normal Neuro General: patient oriented x3, tone normal and moves all extremities Extrem Right lower extremity: no edema Left lower extremity: no edema Assessment and Plan Assessment & Plan (1) Major depression, recurrent: Code(s): F33.9 - Major depressive disorder, recurrent, unspecified Qualifiers: Active/Remission status: in partial remission Qualified Code(s): F33.41 - Major depressive disorder, recurrent, in partial remission (2) Antiphospholipid syndrome: Code(s): D68.61 - Antiphospholipid syndrome (3) Anxiety, generalized: Code(s): F41.1 - Generalized anxiety disorder (4) Chronic pain: Code(s): G89.29 - Other chronic pain Qualifiers: Chronic pain type: chronic pain syndrome Qualified Code(s): G89.4 - Chronic pain syndrome (5) B12 deficiency: Code(s): E53.8 - Deficiency of other specified B group vitamins (6) Cervicalgia: Code(s): M54.2 - Cervicalgia (7) Migraine headache: Code(s): G43.909 - Migraine, unspecified, not intractable, without status migrainosus Qualifiers: Intractability: intractable Migraine type: periodic headache syndrome Qualified Code(s): G43.C1 - Periodic headache syndromes in child or adult, intractable (8) Lupus (systemic lupus erythematosus): Code(s): M32.9 - Systemic lupus erythematosus, unspecified Qualifiers: Systemic lupus erythematosus organ involvement: other Systemic lupus erythematosus type: other Qualified Code(s): M32.19 - Other organ or system involvement in systemic lupus erythematosus (9) Major depression, recurrent: Code(s): F33.9 - Major depressive disorder, recurrent, unspecified Qualifiers: Active/Remission status: in partial remission Qualified Code(s): F33.41 - Major depressive disorder, recurrent, in partial remission (10) Radiculopathy, cervical region: Code(s): M54.12 - Radiculopathy, cervical region (11) Dyspepsia: Code(s): R10.13 - Epigastric pain Plan Patient is a 53-year-old female came in today for her regular three-month follow-up appointment for medication refill Patient was finally able to rent a room with an old lady She is helping her out with groceries However she still have very limited financial resources She has been approved for disability but will not be able to get it checked for another 4-6 months. Suffers from chronic neck pain Patient is also very anxious and is taking medication for that I have filled her cyclobenzaprine and alprazolam filled for next 3 months Patient is on alprazolam 0.5 mg b.i.d. and venlafaxine 150 mg B12 deficiency, and lupus management through hematology [facility].? Patient is also on Lovenox injections, through hematology for antiphospholipid syndrome GERD is stable with omeprazole 20 mg headaches: She is taking amitriptyline 25 mg at night Chronic dizziness stable with meclizine 25 mg Last time she had lab was last year, reminded again to have them done today Follow-up 3 months ? Orders: Orders Comprehensive Met. Panel Today D68.61 - Antiphospholipid syndrome, E53.8 - Deficiency of other specified B group vitamins, F33.41 - Major depressive disorder, recurrent, in partial remission, F41.1 - Generalized anxiety disorder, G43.C1 - Periodic headache syndromes in child or adult, intractable, G89.4 - Chronic pain syndrome, M32.19 - Other organ or system involvement in systemic lupus erythematosus, M54.2 - Cervicalgia LDL Cholesterol Direct Today D68.61 - Antiphospholipid syndrome, E53.8 - Deficiency of other specified B group vitamins, F33.41 - Major depressive disorder, recurrent, in partial remission, F41.1 - Generalized anxiety disorder, G43.C1 - Periodic headache syndromes in child or adult, intractable, G89.4 - Chronic pain syndrome, M32.19 - Other organ or system involvement in systemic lupus erythematosus, M54.2 - Cervicalgia Vitamin D 25-OH (D2 and D3) Today D68.61 - Antiphospholipid syndrome, E53.8 - Deficiency of other specified B group vitamins, F33.41 - Major depressive disorder, recurrent, in partial remission, F41.1 - Generalized anxiety disorder, G43.C1 - Periodic headache syndromes in child or adult, intractable, G89.4 - Chronic pain syndrome, M32.19 - Other organ or system involvement in systemic lupus erythematosus, M54.2 - Cervicalgia Ferritin Today D68.61 - Antiphospholipid syndrome, E53.8 - Deficiency of other specified B group vitamins, F33.41 - Major depressive disorder, recurrent, in partial remission, F41.1 - Generalized anxiety disorder, G43.C1 - Periodic headache syndromes in child or adult, intractable, G89.4 - Chronic pain syndrome, M32.19 - Other organ or system involvement in systemic lupus erythematosus, M54.2 - Cervicalgia Complete Blood Count Auto Diff Today D68.61 - Antiphospholipid syndrome, E53.8 - Deficiency of other specified B group vitamins, F33.41 - Major depressive disorder, recurrent, in partial remission, F41.1 - Generalized anxiety disorder, G43.C1 - Periodic headache syndromes in child or adult, intractable, G89.4 - Chronic pain syndrome, M32.19 - Other organ or system involvement in systemic lupus erythematosus, M54.2 - Cervicalgia Vitamin B12 Today D68.61 - Antiphospholipid syndrome, E53.8 - Deficiency of other specified B group vitamins, F33.41 - Major depressive disorder, recurrent, in partial remission, F41.1 - Generalized anxiety disorder, G43.C1 - Periodic headache syndromes in child or adult, intractable, G89.4 - Chronic pain syndrome, M32.19 - Other organ or system involvement in systemic lupus erythematosus, M54.2 - Cervicalgia TSH reflex Free T4 Today D68.61 - Antiphospholipid syndrome, E53.8 - Deficiency of other specified B group vitamins, F33.41 - Major depressive disorder, recurrent, in partial remission, F41.1 - Generalized anxiety disorder, G43.C1 - Periodic headache syndromes in child or adult, intractable, G89.4 - Chronic pain syndrome, M32.19 - Other organ or system involvement in systemic lupus erythematosus, M54.2 - Cervicalgia Folate Today D68.61 - Antiphospholipid syndrome, E53.8 - Deficiency of other specified B group vitamins, F33.41 - Major depressive disorder, recurrent, in partial remission, F41.1 - Generalized anxiety disorder, G43.C1 - Periodic headache syndromes in child or adult, intractable, G89.4 - Chronic pain syndrome, M32.19 - Other organ or system involvement in systemic lupus erythematosus, M54.2 - Cervicalgia Medications: Changed From alprazolam 0.5 mg PO BID 10 days 20 tabs 0RF anxiety F41.1 - Generalized anxiety disorder To alprazolam 0.5 mg PO BID 60 tabs 2RF anxiety 30 days F41.1 - Generalized anxiety disorder Refilled cyclobenzaprine 5 mg PO .qhs PRN 90 tabs 0RF muscle spasm G89.4 - Chronic pain syndrome, R52 - Pain, unspecified sumatriptan succinate 25 mg PO DAILY PRN 9 tabs 2RF for migraine 30 days amitriptyline 25 mg PO BEDTIME 90 tabs 0RF 90 days G43.909 - Migraine, unspecified, not intractable, without status migrainosus omeprazole 20 mg PO DAILY 90 caps 1RF 90 days Coding Level of Care Code Est Pt Level 4 (19950) Complex EM visit Add On G2211 Diagnoses Recurrent major depressive disorder, in partial remission F33.41 Active/Remission status: in partial remission Antiphospholipid syndrome D68.61 Anxiety, generalized F41.1 Chronic pain syndrome G89.4 Chronic pain type: chronic pain syndrome B12 deficiency E53.8 Cervicalgia M54.2 Intractable periodic headache syndrome G43.C1 Intractability: intractable Migraine type: periodic headache syndrome Other systemic lupus erythematosus with other organ involvement M32.19 Systemic lupus erythematosus organ involvement: other Systemic lupus erythematosus type: other Radiculopathy, cervical region M54.12 Dyspepsia R10.13 Additional Codes FAMILIA-7 Assessment Billing - FAMILIA-7 Assessment Tool: FAMILIA-7 Assessment [id number] ([id number])
[2023-07-20 12:27] VITALS: BP 104/68; PULSE 66; O2SAT 98; BMI 24.0
== END 2023-07-20 12:47 | disposition home or self-care (01) ==
PROVIDERS: PCP Internal Medicine; Visit Provider Internal Medicine
DX: G89.4 Chronic pain syndrome (principal); F33.41 Major depressive disorder, recurrent, in partial remission; D68.61 Antiphospholipid syndrome; M32.19 Other organ or system involvement in systemic lupus erythematosus; F41.1 Generalized anxiety disorder; E53.8 Deficiency of other specified B group vitamins; M54.2 Cervicalgia; G43.C1 Periodic headache syndromes in child or adult, intractable; M54.12 Radiculopathy, cervical region; R10.13 Epigastric pain
CPT/HCPCS: 96127; 99214; G2211

== ENCOUNTER 2023-10-16 09:04 | Outpatient (REF) | payer OTHER, SELFPAY ==
[2023-10-16 10:06] LABS: MANUAL DIFF FLAG NO
[2023-10-16 10:16] LABS: Basophils Absolute Auto 0.1 X10*3/uL (0.0-0.2); Basophils Percent Auto 1.4 % (0-2); Eosinophils Absolute Auto 0.4 X10*3/uL (0.0-0.4); Eosinophils Percent Auto 8.2 % (0-4); Hematocrit 32.8 % (37.0-47.0); Hemoglobin 10.8 g/dl (12.0-16.0); Imm Gran Abs Auto 0.02 X10*3/uL (0.00-0.03); Imm Gran Pct Auto 0.4 % (0.0-0.4); Lymphocytes Absolute Auto 1.9 X10*3/uL (1.2-4.9); Lymphocytes Percent Auto 37.1 % (20-40); Mean Corpuscular HGB Conc 32.9 g/dl (31.0-35.0); Mean Corpuscular Hemoglobin 28.9 pg (27.0-33.0); Mean Corpuscular Volume 87.7 fL (80.0-98.0); Mean Platelet Volume 10.4 fL (9.4-12.3); Monocytes Absolute Auto 0.6 X10*3/uL (0.1-1.2); Monocytes Percent Auto 11.6 % (2-11); Neutrophils Absolute Auto 2.1 x10*3/uL (2.0-8.3); Neutrophils Percent Auto 41.3 % (45-73); Platelet Count 258 X10*3/uL (160-400); Red Blood Count 3.74 X10*6/uL (4.20-5.50); Red Cell Distribution Width 13.3 % (11.0-16.0); White Blood Count 5.1 X10*3/uL (4.8-10.8)
[2023-10-16 10:48] LABS: Alanine Aminotransferase 17 U/L (0-31); Albumin Level 3.8 g/dL (3.5-5.0); Alkaline Phosphatase 75 U/L (39-117); Anion Gap 9 (12-20); Aspartate Amino Transferase 22 U/L (5-31); Bilirubin Total 0.2 mg/dL (0.0-1.0); Blood Urea Nitrogen 16 mg/dL (9-16); Calcium 8.8 mg/dL (8.4-10.2); Carbon Dioxide 28 mmol/L (22-29); Chloride 106 mmol/L (96-108); Estimated Glomerular Filt Rate > 60; Glucose Random 102 mg/dL (60-115); Potassium 3.4 mmol/L (3.3-5.1); Sodium 140 mmol/L (135-145); Total Protein 6.7 g/dL (6.5-8.0)
[2023-10-16 11:06] LABS: Ferritin 48 ng/mL (10-250)
[2023-10-16 11:13] LABS: Vitamin B12 483 pg/mL (200-900)
[2023-10-16 11:48] LABS: Folate 9.6 ng/mL (> or = 4.0)
[2023-10-17 11:54] LABS: LDL Cholesterol Direct 62 mg/dL (<100)
[2023-10-20 16:33] LABS: Vitamin D 25-OH, D2 <4 ng/mL; Vitamin D 25-OH, D3 20 ng/mL; Vitamin D 25-OH, Total 20 ng/mL (30-100)
== END 2023-10-16 09:05 | disposition home or self-care (01) ==
LOC: HO.HMGCLDS 09:04
PROVIDERS: PCP Internal Medicine; Visit Provider Internal Medicine
DX: F33.41 Major depressive disorder, recurrent, in partial remission (principal); D68.61 Antiphospholipid syndrome; F41.1 Generalized anxiety disorder; G89.4 Chronic pain syndrome; E53.8 Deficiency of other specified B group vitamins; M54.2 Cervicalgia; G43.C1 Periodic headache syndromes in child or adult, intractable; M32.19 Other organ or system involvement in systemic lupus erythematosus
CPT/HCPCS: 36415; 80053; 82306; 82607; 82728; 82746; 83721; 84443; 85025

== ENCOUNTER 2023-11-02 09:27 | Outpatient (AMB) | payer OTHER, SELFPAY ==
--- NOTE | 2023-11-02 09:34 | MHC.PC.OV ---
Vital Signs 11/02/23 09:35 Height 4 ft 10 in Weight 118 lb 2 oz BMI 24.7 BP 142/94 H Blood Pressure Location Rt brachial Position Sitting Pulse 91 Pulse Source Pulse Oximeter Pulse Oximetry (%) 92 Oxygen Delivery Method Room Air Intake Visit Reasons: Med review Allergies penicillin V Allergy (Unknown, Verified 11/02/23 09:38) unknown - childhood Penicillins Allergy (Unknown, Verified 11/02/23 09:38) unknown Medication List - Last Reviewed 11/02/23 by Ana Cullen MA alprazolam 0.5 mg PO BID 15 days amitriptyline 25 mg PO BEDTIME 90 days cyanocobalamin (vitamin B-12) 1,000 mcg subcut Q4W 30 days cyclobenzaprine 5 mg PO .qhs PRN enoxaparin (Lovenox) 60 mg (0.6 mL) subcut Q12H enoxaparin 60 mg (0.6 mL) subcut Q12H meclizine 25 mg PO DAILY PRN 90 days omeprazole 20 mg PO DAILY 90 days sumatriptan succinate 25 mg PO DAILY PRN 30 days venlafaxine ER 225 mg (3 x 75 mg) PO DAILY 90 days Tobacco use date assessed: 11/02/23 Dental Screening Dental Screen Date: 11/02/23 Did you have a dental visit in the last 12 months?: No Did you have a dental problem in the last 6 months where you did not have access to dental care?: No Was dental information given to patient?: Patient has dentist HPI Med review HPI Details Patient is a 53-year-old female came in today for her regular three-month follow-up appointment for medication refill Patient is going through a tough time, she is homeless currently and is trying to get accommodation again Sleeping sometimes with 1 friend and sometimes with the other Feeling very distress Patient is weeping today, I have sent message to our behavior health coordinator if they can help her find a residence She is requesting if I can increase her anxiety medication to t.i.d. just for next 3 months which I did Labs done recently reviewed Her hemoglobin is 10.8 which has dropped from previous hemoglobin of 11 range last year She is established with Hematology, she is on B12 injections monthly Ferritin and B12 level is within normal limit Vitamin-D is still low patient is to continue supplement Suffers from chronic neck pain Anxiety/depression: Patient is on alprazolam 0.5 mg b.i.d. and venlafaxine 150 mg, for the next three-month alprazolam increase to t.i.d. then we will go back to b.i.d. again Patient is also on Lovenox injections, through hematology for antiphospholipid syndrome GERD is stable with omeprazole 20 mg headaches: She is taking amitriptyline 25 mg at night Chronic dizziness stable with meclizine 25 mg Follow-up 3 months ? [facility] Medical History Knee pain, right Irregular menses Chronic pain Anxiety, generalized Hx of Sjogren's disease Radiculopathy, cervical region Antiphospholipid syndrome Major depression, recurrent Dyspepsia History of DVT (deep vein thrombosis) Lupus (systemic lupus erythematosus) Pain management Surgical History Hx of cholecystectomy History of salpingectomy H/O LEEP Family History Father Healthy male adult Mother Healthy female Maternal Grandfather Heart disease HTN (hypertension) Maternal Grandmother Breast cancer Paternal Grandfather No problems noted. Paternal Grandmother Breast cancer Diabetes mellitus Brother No problems noted. Sister No problems noted. Son No problems noted. Son No problems noted. Other Substance use disorder Social History Housing: Apartment Alcohol intake: current Alcohol intake frequency: a few times a month Patient Tobacco Use Status: Former Tobacco user Tobacco use type: Cigarette e-Cigarette/Vaping Use: Never Used Second Hand Smoke Exposure: No service: No Current occupational status: unemployed Current occupational exposures/hazards: No Cognitive needs: No Hearing needs: No Vision needs: No Female Reproductive History Menstrual Age of Menarche: 14 Questionnaire PHQ-9 Over the last 2 weeks, how often have you been bothered by any of the following problems? 1. Little interest or pleasure in doing things: more than half the days 2. Feeling down, depressed, or hopeless: more than half the days 3. Trouble falling or staying asleep, or sleeping too much: several days 4. Feeling tired or having little energy: several days 5. Poor appetite or overeating: more than half the days 6. Feeling bad about yourself - or that you are a failure or have let yourself or your family down: more than half the days 7. Trouble concentrating on things, such as reading the newspaper or watching television: more than half the days 8. Moving or speaking so slowly that other people could have noticed. Or the opposite - being so fidgety or restless that you have been moving around a lot more than usual: several days 9. Thoughts that you would be better off or of hurting yourself in some way: not at all Total score: 13 Depression Screening Interpretation: Positive Depression Screening Follow-up: Existing condition and In treatment Depression Screening Done: Yes 40936 - PHQ-9 Billing: Yes Source: Developed by Drs. Savage Ambriz, Annika Hansen, Chilo Zheng and colleagues, with an educational prince from [employer]. Thrive Questionnaire Date Thrive assessed: 11/02/23 I am a: Patient What is your living situation today?: I do not have a steady places to live I am living on the [address] Within the past 12 months, did the food you bought not last and you didn't have the money to get more?: Sometimes True Within the past 12 months, did you worry whether your food would run out before you got money to buy more?: Often true Do you have trouble paying for medicines?: No Do you have trouble getting transportation to medical appointments?: Yes Do you have trouble paying your heating and electricity bill?: No Do you have trouble taking care of your child, family member or friend?: No Do you have trouble with day-to-day activities such as bathing, preparing meals, shopping, managing finances, etc.?: Yes Are you interested in more education?: No Please select the resources that you would like help with: Housing/Fci and Transportation Currently or been in a relationship where the following occur: I choose not to answer THRIVE Score: 4 AUDIT C Alcohol Use Questionnaire (AUDIT-C) 1. How often do you have a drink containing alcohol?: Monthly or less 2. How many drinks containing alcohol do you have on a typical day when you are drinking?: 1 or 2 3. How often do you have six or more drinks on one occasion?: Never Total Score: 1 Score Reviewed/Action Taken: Yes FAMILIA-7 AMB Questionnaire FAMILIA-7 Date FAMILIA - 7 assessed: 11/02/23 Feeling nervous, anxious, or on edge: 3 = Nearly every day Not being able to stop or control worryin = Nearly every day Worrying too much about different things: 3 = Nearly every day Trouble relaxin = Nearly every day Being so restless that it is hard to sit still: 3 = Nearly every day Becoming easily annoyed or irritable: 3 = Nearly every day Feeling afraid as if something awful might happen: 3 = Nearly every day Total FAMILIA-7 score (0-4 normal; 5-9 mild; 10-14 moderate; 15-21 severe): 21 Source: Developed by Drs. Savage Ambriz, Annika Hansen, Chilo Zheng and colleagues, with an educational prince from [employer]. FAMILIA-7 Assessment Billing FAMILIA-7 Assessment Tool: FAMILIA-7 Assessment 46902 Review of Systems Const Denies chills and Denies fever(s) ENT Denies epistaxis and Denies nasal discharge Card Denies chest pain Resp Denies chest congestion, Denies cough and Denies hemoptysis GI Denies diarrhea and Denies nausea Skin/Breast Denies rash Neuro Reports no additional complaints Psych Reports no additional complaints Endo Reports no additional complaints Physical exam (Primary Care) Vital Signs: Last Vital Signs Pulse 91 11/02/23 09:35 BP 142/94 H 11/02/23 09:35 Pulse Ox 92 11/02/23 09:35 Oxygen Delivery Method Room Air 11/02/23 09:35 BMI result Body Mass Index 24.7 Tobacco/Smoking Status: Tobacco use Status Tobacco use date assessed 11/02/23 11/02/23 09:39 Patient Tobacco Use Status Former Tobacco user 11/02/23 09:34 Tobacco use type Cigarette 11/02/23 09:34 e-Cigarette/Vaping Use Never Used 11/02/23 09:34 PHQ-9: PHQ-9 Score PHQ-9: Total score 13 11/02/23 11:14 Depression Screening Interpretation: Positive Depression Screening Follow-up: Existing condition and In treatment Thrive Assessment: Date of Thrive Assessment Date Thrive assessed 11/02/23 11/02/23 09:39 Currently or been in a relationship where the following occur: I choose not to answer Const General: cooperative, comfortable and no acute distress Orientation/consciousness: patient oriented x3 HENMT Head: Yes normocephalic Eyes General: appearance normal, both eyes and all related structures Neck Neck: Yes supple Resp Effort & Inspection: normal respiratory effort, no cough and no stridor Cardio Rhythm: regular rhythm Heart sounds: S1 normal heart sound present and S2 normal heart sound present Skin General skin exam: turgor normal Neuro General: patient oriented x3, tone normal and moves all extremities Extrem Right lower extremity: no edema Left lower extremity: no edema Assessment and Plan Assessment & Plan (1) Homeless: Code(s): Z59.00 - Homelessness unspecified (2) Anemia of chronic disease: Code(s): D63.8 - Anemia in other chronic diseases classified elsewhere (3) Anxiety, generalized: Code(s): F41.1 - Generalized anxiety disorder (4) Major depression, recurrent: Code(s): F33.9 - Major depressive disorder, recurrent, unspecified Qualifiers: Active/Remission status: in partial remission Qualified Code(s): F33.41 - Major depressive disorder, recurrent, in partial remission (5) Major depression, recurrent: Code(s): F33.9 - Major depressive disorder, recurrent, unspecified Qualifiers: Active/Remission status: in partial remission Qualified Code(s): F33.41 - Major depressive disorder, recurrent, in partial remission (6) Antiphospholipid syndrome: Code(s): D68.61 - Antiphospholipid syndrome (7) Chronic pain: Code(s): G89.29 - Other chronic pain Qualifiers: Chronic pain type: chronic pain syndrome Qualified Code(s): G89.4 - Chronic pain syndrome (8) B12 deficiency: Code(s): E53.8 - Deficiency of other specified B group vitamins (9) Cervicalgia: Code(s): M54.2 - Cervicalgia (10) Migraine headache: Code(s): G43.909 - Migraine, unspecified, not intractable, without status migrainosus Qualifiers: Intractability: intractable Migraine type: periodic headache syndrome Qualified Code(s): G43.C1 - Periodic headache syndromes in child or adult, intractable (11) Lupus (systemic lupus erythematosus): Code(s): M32.9 - Systemic lupus erythematosus, unspecified Qualifiers: Systemic lupus erythematosus organ involvement: other Systemic lupus erythematosus type: other Qualified Code(s): M32.19 - Other organ or system involvement in systemic lupus erythematosus (12) Dyspepsia: Code(s): R10.13 - Epigastric pain Plan Patient is a 53-year-old female came in today for her regular three-month follow-up appointment for medication refill Patient is going through a tough time, she is homeless currently and is trying to get accommodation again Sleeping sometimes with 1 friend and sometimes with the other Feeling very distress Patient is weeping today, I have sent message to our behavior health coordinator if they can help her find a residence She is requesting if I can increase her anxiety medication to t.i.d. just for next 3 months which I did Labs done recently reviewed Her hemoglobin is 10.8 which has dropped from previous hemoglobin of 11 range last year She is established with Hematology, she is on B12 injections monthly Ferritin and B12 level is within normal limit Vitamin-D is still low patient is to continue supplement Suffers from chronic neck pain Anxiety/depression: Patient is on alprazolam 0.5 mg b.i.d. and venlafaxine 150 mg, for the next three-month alprazolam increase to t.i.d. then we will go back to b.i.d. again Patient is also on Lovenox injections, through hematology for antiphospholipid syndrome GERD is stable with omeprazole 20 mg headaches: She is taking amitriptyline 25 mg at night Chronic dizziness stable with meclizine 25 mg Follow-up 3 months ? Medications: New ondansetron HCl 4 mg PO Q8H PRN 14 tabs 0RF nausea and vomiting 7 days R11.0 - Nausea Changed From alprazolam 0.5 mg PO BID 15 days 30 tabs 0RF anxiety F41.1 - Generalized anxiety disorder To alprazolam 0.5 mg PO BID-TID 90 tabs 2RF anxiety 30 days F41.1 - Generalized anxiety disorder Refilled cyanocobalamin (vitamin B-12) 1,000 mcg subcut Q4W 1 mL 11RF 30 days E53.8 - Deficiency of other specified B group vitamins cyclobenzaprine 5 mg PO .qhs PRN 90 tabs 0RF muscle spasm G89.4 - Chronic pain syndrome, R52 - Pain, unspecified meclizine 25 mg PO DAILY PRN 90 tabs 0RF dizziness 90 days omeprazole 20 mg PO DAILY 90 caps 1RF 90 days amitriptyline 25 mg PO BEDTIME 90 tabs 0RF 90 days G43.909 - Migraine, unspecified, not intractable, without status migrainosus sumatriptan succinate 25 mg PO DAILY PRN 9 tabs 2RF for migraine 30 days venlafaxine ER 225 mg (3 x 75 mg) PO DAILY 270 caps 3RF 90 days Coding Level of Care Code Est Pt Level 4 (75746) Complex EM visit Add On G2211 Diagnoses Homeless Z59.00 Anemia of chronic disease D63.8 Anxiety, generalized F41.1 Recurrent major depressive disorder, in partial remission F33.41 Active/Remission status: in partial remission Antiphospholipid syndrome D68.61 Chronic pain syndrome G89.4 Chronic pain type: chronic pain syndrome B12 deficiency E53.8 Cervicalgia M54.2 Intractable periodic headache syndrome G43.C1 Intractability: intractable Migraine type: periodic headache syndrome Other systemic lupus erythematosus with other organ involvement M32.19 Systemic lupus erythematosus organ involvement: other Systemic lupus erythematosus type: other Dyspepsia R10.13 Additional Codes FAMILIA-7 Assessment Billing - FAMILIA-7 Assessment Tool: FAMILIA-7 Assessment 31969 ([id number])
[2023-11-02 09:35] VITALS: BP 142/94; PULSE 91; O2SAT 92; BMI 24.7
== END 2023-11-02 13:20 | disposition home or self-care (01) ==
PROVIDERS: PCP Internal Medicine; Visit Provider Internal Medicine
DX: D68.61 Antiphospholipid syndrome (principal); F33.41 Major depressive disorder, recurrent, in partial remission; M32.19 Other organ or system involvement in systemic lupus erythematosus; Z59.00 Homelessness unspecified; F41.1 Generalized anxiety disorder; D63.8 Anemia in other chronic diseases classified elsewhere; G89.4 Chronic pain syndrome; E53.8 Deficiency of other specified B group vitamins; M54.2 Cervicalgia; G43.C1 Periodic headache syndromes in child or adult, intractable; R10.13 Epigastric pain

== ENCOUNTER → 2023-11-02 09:27 | Outpatient (BNVA) | payer OTHER, SELFPAY | PROVIDERS: PCP Internal Medicine; Visit Provider Internal Medicine | DX: D64.9 Anemia, unspecified (principal); F41.1 Generalized anxiety disorder; F33.41 Major depressive disorder, recurrent, in partial remission; D68.61 Antiphospholipid syndrome; E53.8 Deficiency of other specified B group vitamins; M54.2 Cervicalgia; G43.C1 Periodic headache syndromes in child or adult, intractable; M32.19 Other organ or system involvement in systemic lupus erythematosus; R10.13 Epigastric pain; Z59.00 Homelessness unspecified | CPT/HCPCS: 96127; 99212 ==

== ENCOUNTER 2024-02-27 08:30 | Outpatient (AMB) | payer OTHER, SELFPAY ==
[2024-02-27 08:31] VITALS: BP 118/84; PULSE 91; TEMP 37.1; O2SAT 99; BMI 19.8
--- NOTE | 2024-02-27 08:31 | A.OFFPC_ITS ---
Vital Signs 02/27/24 08:31 Height 5 ft 2 in Weight 108 lb 6 oz BMI 19.8 BP 118/84 Blood Pressure Location Rt brachial Position Sitting Pulse 91 Pulse Source Pulse Oximeter Temp 98.7 F Temp Source Oral Pulse Oximetry (%) 99 Oxygen Delivery Method Room Air Intake Visit Reasons: Med Review Allergies penicillin V Allergy (Unknown, Verified 02/27/24 08:32) unknown - childhood Penicillins Allergy (Unknown, Verified 02/27/24 08:32) unknown Medication List - Last Reconciled 02/27/24 by Latrell Restrepo MD alprazolam 0.5 mg PO BID-TID 30 days amitriptyline 25 mg PO BEDTIME 90 days cyanocobalamin (vitamin B-12) 1,000 mcg subcut Q4W 30 days cyclobenzaprine 5 mg PO .qhs PRN enoxaparin (Lovenox) 60 mg (0.6 mL) subcut Q12H enoxaparin 60 mg (0.6 mL) subcut Q12H meclizine 25 mg PO DAILY PRN 90 days omeprazole 20 mg PO DAILY 90 days ondansetron HCl 4 mg PO Q8H PRN 7 days sumatriptan succinate 25 mg PO DAILY PRN 30 days venlafaxine ER 225 mg (3 x 75 mg) PO DAILY 90 days Tobacco use date assessed: 02/27/24 Dental Screening Dental Screen Date: 02/27/24 Did you have a dental visit in the last 12 months?: No Did you have a dental problem in the last 6 months where you did not have access to dental care?: No Was dental information given to patient?: Patient has dentist HPI Med Review HPI Details Three-month follow-up appointment - The patient is a 53-year-old female pr esenting with upper respiratory symptoms. - History of recurrent colds attributed to exposure from child at her residence. - Nasal congestion began approximately f our days ago. - Initially experienced similar symptoms for two weeks prior, improved, then recurred. - Symptoms include thick, yellowish mucu s. From nose - History of anemia with labs last check ed in October - Reports allergies exacerbating sinus i ssues. - Anemia managed with vitamin B12 as pat ient is on supplementation. - Continues to experience anxiety with n eed for medication refills. - suffers from severe depression, have travon rodriguez appointment today - Currently residing with someone, but i n transitional living situation. Also struggles with transportation issues - history of migraine headaches stable - chronic cervicalgia due to DJD - antiphospholipid syndrome, lupus eryth ematosus established with Hematology and is on Lovenox injections chronically Medications - B12 (for Anemia) - Meclizine (for Dizziness) - Omeprazole (for Gastroesophageal Reflu x Disease) - Simatryptan (for Migraines) - Amitriptyline (for for migraines) - Venlafaxine (for Anxiety) - Muscle relaxer (Indication unstated) - sumatriptan - Lovenox injections Problem List - Acute Rhinorrhea/Sinusitis - Anemia - allergies - Homelessness/Transitional Housing - Anxiety Disorder - severe depression - antiphospholipid syndrome Diagnostic results Labs: - Anemia lab tests last conducted in October; need to repeat labs again today Patient Instructions - Take prescribed antibiotics for acute cold symptoms as directed. - Continue taking all current medication s. - Schedule and attend follow-up appointm ent for laboratory tests to monitor anemia. - Maintain regular medical appointments and respond to scheduling calls promptly. - Seek assistance from long term care social worker o r counselor for housing stability support. Review of Systems Respiratory: - Reports nasal congestion and runny nose with thick yellowish mucus General: No fever no chills neurological: No headaches no dizziness cardiovascular: No syncope, no chest pain, no palpitations gastrointestinal: No nausea vomiting or diarrhea endocrine: No polyuria polydipsia no heat intolerance genitourinary: No dysuria skin: No new complaints Physical Exam general: No acute distress HEENT: Nasal congestion with swollen nose, yellowish-green thick mucus neck: Supple respiratory system: Able to talk in full sentences, lungs are good, no audible wheeze, no stridor cardiovascular: S1-S2 gastrointestinal: No pain extremities: No new findings OPERATIONS SUPPORT COORDINATOR: Alert awake oriented x3 motor sensory intact skin: Normal turgor PFSH Medical History Knee pain, right Irregular menses Chronic pain Anxiety, generalized Hx of Sjogren's disease Radiculopathy, cervical region Antiphospholipid syndrome Major depression, recurrent Dyspepsia History of DVT (deep vein thrombosis) Lupus (systemic lupus erythematosus) Pain management Surgical History Hx of cholecystectomy History of salpingectomy H/O LEEP Family History Father Healthy male adult Mother Healthy female Maternal Grandfather Heart disease HTN (hypertension) Maternal Grandmother Breast cancer Paternal Grandfather No problems noted. Paternal Grandmother Breast cancer Diabetes mellitus Brother No problems noted. Sister No problems noted. Son No problems noted. Son No problems noted. Other Substance use disorder Social History Housing: Apartment Alcohol intake: current Alcohol intake frequency: a few times a month Patient Tobacco Use Status: Former Tobacco user Tobacco use type: Cigarette e-Cigarette/Vaping Use: Never Used Second Hand Smoke Exposure: No service: No Current occupational status: unemployed Current occupational exposures/hazards: No Cognitive needs: No Hearing needs: No Vision needs: No Female Reproductive History Menstrual Age of Menarche: 14 Questionnaire PHQ-9 Over the last 2 weeks, how often have you been bothered by any of the following problems? 1. Little interest or pleasure in doing things: nearly every day 2. Feeling down, depressed, or hopeless: nearly every day 3. Trouble falling or staying asleep, or sleeping too much: nearly every day 4. Feeling tired or having little energy: nearly every day 5. Poor appetite or overeating: nearly every day 6. Feeling bad about yourself - or that you are a failure or have let yourself or your family down: nearly every day 7. Trouble concentrating on things, such as reading the newspaper or watching television: nearly every day 8. Moving or speaking so slowly that other people could have noticed. Or the opposite - being so fidgety or restless that you have been moving around a lot more than usual: nearly every day 9. Thoughts that you would be better off or of hurting yourself in some way: nearly every day Total score: 27 Depression Screening Interpretation: Positive Depression Screening Follow-up: Existing condition and In treatment Depression Screening Done: Yes [id number] - PHQ-9 Billing: Yes Source: Developed by Drs. Savage Ambriz, Annika Hansen, Chilo Zheng and colleagues, with an educational prince from [employer]. Thrive Questionnaire Date Thrive assessed: 02/27/24 I am a: Patient What is your living situation today?: I have a steady place to live Within the past 12 months, did the food you bought not last and you didn't have the money to get more?: Never true Within the past 12 months, did you worry whether your food would run out before you got money to buy more?: Never true Do you have trouble paying for medicines?: No Do you have trouble getting transportation to medical appointments?: No Do you have trouble paying your heating and electricity bill?: No Do you have trouble taking care of your child, family member or friend?: No Do you have trouble with day-to-day activities such as bathing, preparing meals, shopping, managing finances, etc.?: No Are you currently unemployed and looking for a job?: No Are you interested in more education?: No Please select the resources that you would like help with: None Currently or been in a relationship where the following occur: No concerns reported THRIVE Score: 0 AUDIT C Alcohol Use Questionnaire (AUDIT-C) 1. How often do you have a drink containing alcohol?: Monthly or less 2. How many drinks containing alcohol do you have on a typical day when you are drinking?: 1 or 2 3. How often do you have six or more drinks on one occasion?: Never Total Score: 1 Score Reviewed/Action Taken: Yes FAMILIA-7 AMB Questionnaire FAMILIA-7 Date FAMILIA - 7 assessed: 02/27/24 Feeling nervous, anxious, or on edge: 1 = Several days Not being able to stop or control worryin = Several days Worrying too much about different things: 1 = Several days Trouble relaxin = Nearly every day Being so restless that it is hard to sit still: 3 = Nearly every day Becoming easily annoyed or irritable: 3 = Nearly every day Feeling afraid as if something awful might happen: 3 = Nearly every day Total FAMILIA-7 score (0-4 normal; 5-9 mild; 10-14 moderate; 15-21 severe): 15 Source: Developed by Drs. Savage Ambriz, Annika Hansen, Chilo Zheng and colleagues, with an educational prince from [employer]. FAMILIA-7 Assessment Billing FAMILIA-7 Assessment Tool: FAMILIA-7 Assessment 79816 Physical exam (Primary Care) Vital Signs: Last Vital Signs Temp 98.7 F 02/27/24 08:31 Pulse 91 02/27/24 08:31 BP 118/84 02/27/24 08:31 Pulse Ox 99 02/27/24 08:31 Oxygen Delivery Method Room Air 02/27/24 08:31 BMI result Body Mass Index 19.8 Tobacco/Smoking Status: Tobacco use Status Tobacco use date assessed 02/27/24 02/27/24 08:34 Patient Tobacco Use Status Former Tobacco user 02/27/24 08:34 Tobacco use type Cigarette 02/27/24 08:34 e-Cigarette/Vaping Use Never Used 02/27/24 08:34 PHQ-9: PHQ-9 Score PHQ-9: Total score 27 02/27/24 09:16 Depression Screening Interpretation: Positive Depression Screening Follow-up: Existing condition and In treatment Thrive Assessment: Date of Thrive Assessment Date Thrive assessed 02/27/24 02/27/24 08:34 Currently or been in a relationship where the following occur: No concerns reported Coding Level of Care Code Est Pt Level 5 (24601) Diagnoses Homeless Z59.00 Recurrent major depressive disorder, in partial remission F33.41 Active/Remission status: in partial remission B12 deficiency E53.8 Anemia of chronic disease D63.8 Antiphospholipid syndrome D68.61 Other systemic lupus erythematosus with other organ involvement M32.19 Systemic lupus erythematosus organ involvement: other Systemic lupus erythematosus type: other Chronic pain syndrome G89.4 Chronic pain type: chronic pain syndrome Cervicalgia M54.2 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 Anxiety, generalized F41.1 Additional Codes FAMILIA-7 Assessment Billing - FAMILIA-7 Assessment Tool: FAMILIA-7 Assessment 51825 ([id number]) PHQ-9 - 14400 - PHQ-9 Billing: Yes ([id number]) Assessment & Plan Assessment & Plan (1) Homeless: Code(s): Z59.00 - Homelessness unspecified Category: Social Hx (2) Major depression, recurrent: Code(s): F33.9 - Major depressive disorder, recurrent, unspecified Category: Medical Qualifiers: Active/Remission status: in partial remission Qualified Code(s): F33.41 - Major depressive disorder, recurrent, in partial remission (3) B12 deficiency: Code(s): E53.8 - Deficiency of other specified B group vitamins Category: Medical (4) Anemia of chronic disease: Code(s): D63.8 - Anemia in other chronic diseases classified elsewhere Category: Medical (5) Antiphospholipid syndrome: Code(s): D68.61 - Antiphospholipid syndrome Category: Medical (6) Lupus (systemic lupus erythematosus): Code(s): M32.9 - Systemic lupus erythematosus, unspecified Category: Medical Qualifiers: Systemic lupus erythematosus organ involvement: other Systemic lupus erythematosus type: other Qualified Code(s): M32.19 - Other organ or system involvement in systemic lupus erythematosus (7) Chronic pain: Code(s): G89.29 - Other chronic pain Category: Medical Qualifiers: Chronic pain type: chronic pain syndrome Qualified Code(s): G89.4 - Chronic pain syndrome (8) Cervicalgia: Code(s): M54.2 - Cervicalgia Category: Medical (9) DJD (degenerative joint disease) of cervical spine: Code(s): M47.812 - Spondylosis without myelopathy or radiculopathy, cervical region Category: Medical Qualifiers: 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 - History of recurrent colds attributed to exposure from child at her residence. - Nasal congestion began approximately four days ago. - Initially experienced similar symptoms for two weeks prior, improved, then recurred. - Symptoms include thick, yellowish mucus. From nose - History of anemia with labs last checked in October - Reports allergies exacerbating sinus issues. - Anemia managed with vitamin B12 as patient is on supplementation. - Continues to experience anxiety with need for medication refills. - suffers from severe depression, have counseling appointment today - Currently residing with someone, but in transitional living situation. Also struggles with transportation issues - history of migraine headaches stable - chronic cervicalgia due to DJD - antiphospholipid syndrome, lupus erythematosus established with Hematology and is on Lovenox injections chronically Medications - B12 (for Anemia) - Meclizine (for Dizziness) - Omeprazole (for Gastroesophageal Reflux Disease) - Simatryptan (for Migraines) - Amitriptyline (for for migraines) - Venlafaxine (for Anxiety) - Muscle relaxer (Indication unstated) - sumatriptan - Lovenox injections Problem List - Acute Rhinorrhea/Sinusitis - Anemia - allergies - Homelessness/Transitional Housing - Anxiety Disorder - severe depression - antiphospholipid syndrome Diagnostic results Labs: - Anemia lab tests last conducted in October; need to repeat labs again today Patient Instructions - Take prescribed antibiotics for acute cold symptoms as directed. - Continue taking all current medications. - Schedule and attend follow-up appointment for laboratory tests to monitor anemia. - Maintain regular medical appointments and respond to scheduling calls promptly. - Seek assistance from long term care social worker or counselor for housing stability support. Her depression score is very high, message has been sent to our behavior health coordinator reach out to patient and assist 45 minutes spent in care of this patient Orders: Orders Vitamin B12 Today D63.8 - Anemia in other chronic diseases classified elsewhere, D68.61 - Antiphospholipid syndrome, E53.8 - Deficiency of other specified B group vitamins, F33.41 - Major depressive disorder, recurrent, in partial remission, F41.1 - Generalized anxiety disorder, G89.4 - Chronic pain syndrome, M32.19 - Other organ or system involvement in systemic lupus erythematosus, M47.812 - Spondylosis without myelopathy or radiculopathy, cervical region, M54.2 - Cervicalgia Complete Blood Count Auto Diff Today D63.8 - Anemia in other chronic diseases classified elsewhere, D68.61 - Antiphospholipid syndrome, E53.8 - Deficiency of other specified B group vitamins, F33.41 - Major depressive disorder, recurrent, in partial remission, F41.1 - Generalized anxiety disorder, G89.4 - Chronic pain syndrome, M32.19 - Other organ or system involvement in systemic lupus erythematosus, M47.812 - Spondylosis without myelopathy or radiculopathy, cervical region, M54.2 - Cervicalgia Ferritin Today D63.8 - Anemia in other chronic diseases classified elsewhere, D68.61 - Antiphospholipid syndrome, E53.8 - Deficiency of other specified B group vitamins, F33.41 - Major depressive disorder, recurrent, in partial remission, F41.1 - Generalized anxiety disorder, G89.4 - Chronic pain syndrome, M32.19 - Other organ or system involvement in systemic lupus erythematosus, M47.812 - Spondylosis without myelopathy or radiculopathy, cervical region, M54.2 - Cervicalgia Medications: New azithromycin Take 2 tablets today then 1 daily 250 mg PO ONCE 6 tabs 0RF 5 days J06.9 - Acute upper respiratory infection, unspecified Refilled alprazolam 0.5 mg PO BID-TID 90 tabs 2RF anxiety 30 days F41.1 - Generalized anxiety disorder amitriptyline 25 mg PO BEDTIME 90 tabs 0RF 90 days G43.909 - Migraine, unspecified, not intractable, without status migrainosus cyanocobalamin (vitamin B-12) 1,000 mcg subcut Q4W 1 mL 11RF 30 days E53.8 - Deficiency of other specified B group vitamins cyclobenzaprine 5 mg PO .qhs PRN 90 tabs 0RF muscle spasm G89.4 - Chronic pain syndrome, R52 - Pain, unspecified omeprazole 20 mg PO DAILY 90 caps 1RF 90 days sumatriptan succinate 25 mg PO DAILY PRN 9 tabs 2RF for migraine 30 days venlafaxine ER 225 mg (3 x 75 mg) PO DAILY 270 caps 3RF 90 days
== END 2024-02-27 10:07 | disposition home or self-care (01) ==
PROVIDERS: PCP Internal Medicine; Visit Provider Internal Medicine
DX: F33.41 Major depressive disorder, recurrent, in partial remission (principal); D68.61 Antiphospholipid syndrome; M32.19 Other organ or system involvement in systemic lupus erythematosus; Z59.00 Homelessness unspecified; D63.8 Anemia in other chronic diseases classified elsewhere; E53.8 Deficiency of other specified B group vitamins; G89.4 Chronic pain syndrome; M54.2 Cervicalgia; M47.812 Spondylosis without myelopathy or radiculopathy, cervical region; F41.1 Generalized anxiety disorder

== ENCOUNTER → 2024-02-27 08:30 | Outpatient (BNVA) | payer OTHER, SELFPAY | PROVIDERS: PCP Internal Medicine; Visit Provider Internal Medicine | DX: F33.41 Major depressive disorder, recurrent, in partial remission (principal); F41.1 Generalized anxiety disorder; E53.8 Deficiency of other specified B group vitamins; D63.8 Anemia in other chronic diseases classified elsewhere; D68.61 Antiphospholipid syndrome; M32.19 Other organ or system involvement in systemic lupus erythematosus; G89.4 Chronic pain syndrome; M54.2 Cervicalgia; M47.812 Spondylosis without myelopathy or radiculopathy, cervical region | CPT/HCPCS: 96127; 99212 ==

== ENCOUNTER 2024-05-21 13:25 | Outpatient (REF) | payer MEDICAID, SELFPAY ==
[2024-05-21 16:13] LABS: MANUAL DIFF FLAG NO
[2024-05-21 16:18] LABS: Basophils Absolute Auto 0.1 X10*3/uL (0.0-0.2); Basophils Percent Auto 1.5 % (0-2); Eosinophils Absolute Auto 0.2 X10*3/uL (0.0-0.4); Eosinophils Percent Auto 4.8 % (0-4); Hematocrit 34.4 % (37.0-47.0); Hemoglobin 10.8 g/dl (12.0-16.0); Imm Gran Abs Auto 0.01 X10*3/uL (0.00-0.03); Imm Gran Pct Auto 0.3 % (0.0-0.4); Lymphocytes Absolute Auto 1.7 X10*3/uL (1.2-4.9); Lymphocytes Percent Auto 43.2 % (20-40); Mean Corpuscular HGB Conc 31.4 g/dl (31.0-35.0); Mean Corpuscular Hemoglobin 27.8 pg (27.0-33.0); Mean Corpuscular Volume 88.4 fL (80.0-98.0); Mean Platelet Volume 10.8 fL (9.4-12.3); Monocytes Absolute Auto 0.5 X10*3/uL (0.1-1.2); Monocytes Percent Auto 11.6 % (2-11); Neutrophils Absolute Auto 1.5 x10*3/uL (2.0-8.3); Neutrophils Percent Auto 38.6 % (45-73); Platelet Count 214 X10*3/uL (160-400); Red Blood Count 3.89 X10*6/uL (4.20-5.50); Red Cell Distribution Width 13.5 % (11.0-16.0)
[2024-05-21 16:50] LABS: Ferritin 113 ng/mL (10-250)
[2024-05-21 16:56] LABS: Vitamin B12 1824 pg/mL (200-900)
== END 2024-05-21 13:26 | disposition home or self-care (01) ==
LOC: HO.HMGCLDS 13:25
PROVIDERS: PCP Internal Medicine; Visit Provider Internal Medicine
DX: D68.61 Antiphospholipid syndrome (principal); F33.41 Major depressive disorder, recurrent, in partial remission; M32.19 Other organ or system involvement in systemic lupus erythematosus; G89.4 Chronic pain syndrome; M54.2 Cervicalgia; M47.812 Spondylosis without myelopathy or radiculopathy, cervical region; F41.1 Generalized anxiety disorder; E53.8 Deficiency of other specified B group vitamins
CPT/HCPCS: 36415; 82607; 82728; 85025; 96127; 99212

== ENCOUNTER 2024-05-21 13:36 | Outpatient (AMB) | payer MEDICAID, SELFPAY ==
[2024-05-21 13:43] VITALS: BP 128/84; PULSE 90; O2SAT 98; BMI 19.6
--- NOTE | 2024-05-21 13:43 | A.OFFPC_ITS ---
Vital Signs 05/21/24 13:43 Height 5 ft 2 in Weight 107 lb 4 oz BMI 19.6 BP 128/84 Blood Pressure Location Lt brachial Position Sitting Pulse 90 Pulse Source Pulse Oximeter Pulse Oximetry (%) 98 Oxygen Delivery Method Room Air Intake Visit Reasons: Follow up on medication Allergies penicillin V Allergy (Unknown, Verified 05/21/24 13:46) unknown - childhood Penicillins Allergy (Unknown, Verified 05/21/24 13:46) unknown Medication List - Last Reconciled 05/21/24 by Latrell Restrepo MD alprazolam 0.5 mg PO BID-TID 30 days amitriptyline 25 mg PO BEDTIME 90 days cyanocobalamin (vitamin B-12) 1,000 mcg subcut Q4W 30 days cyclobenzaprine 5 mg PO .qhs PRN enoxaparin (Lovenox) 60 mg (0.6 mL) subcut Q12H enoxaparin 60 mg (0.6 mL) subcut Q12H meclizine 25 mg PO DAILY PRN 90 days omeprazole 20 mg PO DAILY 90 days ondansetron HCl 4 mg PO Q8H PRN 7 days sumatriptan succinate 25 mg PO DAILY PRN 30 days venlafaxine ER 225 mg (3 x 75 mg) PO DAILY 90 days Tobacco use date assessed: 05/21/24 Dental Screening Dental Screen Date: 05/21/24 Did you have a dental visit in the last 12 months?: Yes Did you have a dental problem in the last 6 months where you did not have access to dental care?: No Was dental information given to patient?: Patient has dentist HPI Follow up on medication HPI Details - The patient is a 53-year-old female wi th a history of anxiety disorder, major depression, migraine headaches, B12 deficiency, cervical spinal pain and spasms, clotting disorder, chronic vertigo Chronic nausea, difficulty gaining weight, chronic GERD presenting with concerns related to housing, financial stability, and social support. - The patient is currently experiencing financial hardship, living off of $401 a month from Social Security benefits, and struggling to afford rent in a shared housing situation. - She reports living in an unsanitary [facility], renting a room from a friend whose has due to brain cancer. - The patient is currently paying $100 a week for rent, which exceeds her financial capabilities. - She has increased stress due to relati onship issues, having recently discovered that her boyfriend is cheating and mismanaging finances which were meant for shared living expenses. - She finds herself often isolated in he r room with limited access to other parts of the household due to the environment being untidy and shared with multiple people who do not maintain cleanliness. - Reports stress and difficulty managing stress contributing to social withdrawal and concerns about future housing stability Medications - Amitriptyline - B12 injections - Cyclobenzaprine - Omeprazole - Meclizine - Sumatriptan - Venlafaxine - Zofran (as needed for nausea) - Lovenox Stress The patient is experiencing significant stress due to her current living situation and financial instability. The overcrowded and unclean home environment, along with an inability to afford adequate housing, contributes to constant stress. Additionally, relationship issues with her boyfriend, who has been unfaithful and mismanaged their finances, further exacerbate her stressful circumstances. The patient niles by socially withdrawing to her room, where she keeps minimal basic amenities to sustain herself. Although she is on the list of [employer] for housing support, the situation remains unclear and unresolved, adding duration to her stress. Past Psychiatric History she has been referred to counseling and a psychiatrist, indicating prior involvement with mental health services. . Home Environment The patient lives in a challenging home environment, renting a room from a childhood acquaintance. The household is currently overcrowded, with several occupants contributing to a disorganized and unsanitary living space. The patient mostly remains in her room, which is equipped with essentials like a refrigerator, microwave, and air fryer. The responsibility of maintaining cleanliness falls heavily on her despite financial constraints, and she prefers to avoid common areas to reduce stress. Friends and Support Social support is limited; the patient relies on a small social network, including her boyfriend, who is also facing housing instability. Her relationship with her boyfriend is under strain and provides limited positive social reinforcement. Support from external networks such as community programs appears challenged by bureaucracy and waiting lists, leading the patient to feel a lack of meaningful support structures. Substance Use The patient denies current substance use, indicating she has considered using marijuana for pain relief but does not due to financial constraints. Counseling I provided counseling with recommendations to maintain open communication with her social science professor and to continue her engagement in counseling and psychiatric care as facilitated by the healthcare provider. Resources for financial and housing advice were discussed including staying actively involved with [employer] and exploring other potential housing assistance programs. Additionally, I advised her on setting clear boundaries with her partner to manage her finances and emotional health. Employment - The patient is not currently employed, and her primary source of income is her Social Security benefits. - She is experiencing financial insecuri ty with a monthly income of $401. Diet History The patient describes minimalistic eating habits primarily dictated by financial constraints and stress-related nausea, resulting in small meal portions throughout the day. She reports feeling nauseous when eating larger meals, necessitating frequent small snacks. Despite an effort to maintain hydration, other specific dietary choices or preferences are not discussed. Patient Instructions - Continue engagement with counseling an d psychiatric services. - Maintain open communication with [employer] workers and community resource programs for financial and housing assistance. - Monitor personal finances and establis h firm boundaries with her partner regarding financial contributions and conduct. - medications refilled for next 3 months Follow-up 3 months Review of Systems - General: No fever no chills - Neurological: No headaches no dizzine ss - Ear nose throat: No sore throat no he aring difficulty no ear pain - Cardiovascular : No syncope, no chest pain, no palpitations - Gastrointestinal: No nausea vomiting or diarrhea - Endocrine: No polyuria polydipsia no heat intolerance - Genitourinary: No dysuria , no blood in urine Physical Exam General: No acute distress HEENT: No acute findings Neck: Supple Respiratory system: Able to talk in full sentences, no audible wheeze Cardiovascular: S1-S2 regular in rate and rhythm Gastrointestinal: Bowel sounds positive, no pain, Extremities: No new findings DIGGING MACHINE OPERATOR: Alert awake oriented x3 motor sensory intact Skin: Normal turgor psychiatry: Answers appropriately, makes eye contact, [facility] Medical History Knee pain, right Irregular menses Chronic pain Anxiety, generalized Hx of Sjogren's disease Radiculopathy, cervical region Antiphospholipid syndrome Major depression, recurrent Dyspepsia History of DVT (deep vein thrombosis) Lupus (systemic lupus erythematosus) Pain management Surgical History Hx of cholecystectomy History of salpingectomy H/O LEEP Family History Father Healthy male adult Mother Healthy female Maternal Grandfather Heart disease HTN (hypertension) Maternal Grandmother Breast cancer Paternal Grandfather No problems noted. Paternal Grandmother Breast cancer Diabetes mellitus Brother No problems noted. Sister No problems noted. Son No problems noted. Son No problems noted. Other Substance use disorder Social History Housing: Apartment Alcohol intake: current Alcohol intake frequency: a few times a month Patient Tobacco Use Status: Former Tobacco user Tobacco use type: Cigarette e-Cigarette/Vaping Use: Never Used Second Hand Smoke Exposure: No service: No Current occupational status: unemployed Current occupational exposures/hazards: No Cognitive needs: No Hearing needs: No Vision needs: No Female Reproductive History Menstrual Age of Menarche: 14 Questionnaire Thrive Questionnaire Date Thrive assessed: 05/21/24 I am a: Patient What is your living situation today?: I do not have a steady places to live I am temporarily staying with others Within the past 12 months, did the food you bought not last and you didn't have the money to get more?: Sometimes True Within the past 12 months, did you worry whether your food would run out before you got money to buy more?: Sometimes True Do you have trouble paying for medicines?: No Do you have trouble getting transportation to medical appointments?: Yes Do you have trouble paying your heating and electricity bill?: No Do you have trouble taking care of your child, family member or friend?: No Do you have trouble with day-to-day activities such as bathing, preparing meals, shopping, managing finances, etc.?: Yes Are you currently unemployed and looking for a job?: No Are you interested in more education?: No THRIVE Score: 4 AUDIT C Alcohol Use Questionnaire (AUDIT-C) 1. How often do you have a drink containing alcohol?: 2-4 times a month 2. How many drinks containing alcohol do you have on a typical day when you are drinking?: 1 or 2 3. How often do you have six or more drinks on one occasion?: Never Total Score: 2 Score Reviewed/Action Taken: Yes FAMILIA-7 AMB Questionnaire FAMILIA-7 Date FAMILIA - 7 assessed: 05/21/24 Feeling nervous, anxious, or on edge: 3 = Nearly every day Not being able to stop or control worryin = Nearly every day Worrying too much about different things: 3 = Nearly every day Trouble relaxin = Nearly every day Being so restless that it is hard to sit still: 3 = Nearly every day Becoming easily annoyed or irritable: 3 = Nearly every day Feeling afraid as if something awful might happen: 2 = More than half the days Total FAMILIA-7 score (0-4 normal; 5-9 mild; 10-14 moderate; 15-21 severe): 20 Source: Developed by Drs. Savage Ambriz, Annika Hansen, Chilo Zheng and colleagues, with an educational prince from [employer]. FAMILIA-7 Assessment Billing FAMILIA-7 Assessment Tool: FAMILIA-7 Assessment 27986 Physical exam (Primary Care) Vital Signs: Last Vital Signs Pulse 90 05/21/24 13:43 BP 128/84 05/21/24 13:43 Pulse Ox 98 05/21/24 13:43 Oxygen Delivery Method Room Air 05/21/24 13:43 BMI result Body Mass Index 19.6 Tobacco/Smoking Status: Tobacco use Status Tobacco use date assessed 05/21/24 05/21/24 13:47 Patient Tobacco Use Status Former Tobacco user 05/21/24 13:47 Tobacco use type Cigarette 05/21/24 13:47 e-Cigarette/Vaping Use Never Used 05/21/24 13:47 Thrive Assessment: Date of Thrive Assessment Date Thrive assessed 05/21/24 05/21/24 13:47 Coding Level of Care Code Est Pt Level 5 (44070) Diagnoses Anemia of chronic disease D63.8 Homeless Z59.00 Recurrent major depressive disorder, in partial remission F33.41 Active/Remission status: in partial remission B12 deficiency E53.8 Antiphospholipid syndrome D68.61 Anxiety, generalized F41.1 Radiculopathy, cervical region M54.12 Chronic pain syndrome G89.4 Chronic pain type: chronic pain syndrome Dyspepsia R10.13 Chronic nausea R11.0 Financial difficulties Z59.9 Emotional stress R45.7 Additional Codes FAMILIA-7 Assessment Billing - FAMILIA-7 Assessment Tool: FAMILIA-7 Assessment 52146 ([id number]) Time Spent (min) 40 Comment Most time spent [id number] with the patient discussing her medical issues Assessment & Plan Assessment & Plan (1) Anemia of chronic disease: Code(s): D63.8 - Anemia in other chronic diseases classified elsewhere Category: Medical (2) Homeless: Code(s): Z59.00 - Homelessness unspecified Category: Social Hx (3) Major depression, recurrent: Code(s): F33.9 - Major depressive disorder, recurrent, unspecified Category: Medical Qualifiers: Active/Remission status: in partial remission Qualified Code(s): F33.41 - Major depressive disorder, recurrent, in partial remission (4) B12 deficiency: Code(s): E53.8 - Deficiency of other specified B group vitamins Category: Medical (5) Antiphospholipid syndrome: Code(s): D68.61 - Antiphospholipid syndrome Category: Medical (6) Anxiety, generalized: Code(s): F41.1 - Generalized anxiety disorder Category: Medical (7) Radiculopathy, cervical region: Code(s): M54.12 - Radiculopathy, cervical region Category: Medical (8) Chronic pain: Code(s): G89.29 - Other chronic pain Category: Medical Qualifiers: Chronic pain type: chronic pain syndrome Qualified Code(s): G89.4 - Chronic pain syndrome (9) Dyspepsia: Code(s): R10.13 - Epigastric pain Category: Medical (10) Chronic nausea: Code(s): R11.0 - Nausea Category: Medical (11) Financial difficulties: Code(s): Z59.9 - Problem related to housing and economic circumstances, unspecified Category: Social Hx (12) Emotional stress: Code(s): R45.7 - State of emotional shock and stress, unspecified Category: Medical Plan - The patient is a 53-year-old female with a history of anxiety disorder, major depression, migraine headaches, B12 deficiency, cervical spinal pain and spasms, clotting disorder, chronic vertigo Chronic nausea, difficulty gaining weight, chronic GERD presenting with concerns related to housing, financial stability, and social support. - The patient is currently experiencing financial hardship, living off of $401 a month from Social Security benefits, and struggling to afford rent in a shared housing situation. - She reports living in an unsanitary environment, renting a room from a friend whose has due to brain cancer. - The patient is currently paying $100 a week for rent, which exceeds her financial capabilities. - She has increased stress due to relationship issues, having recently discove red that her boyfriend is cheating and mismanaging finances which were meant for shared living expenses. - She finds herself often isolated in her room with limited access to other parts of the household due to the environment being untidy and shared with multiple people who do not maintain cleanliness. - Reports stress and difficulty managing stress contributing to social withdrawal and concerns about future housing stability Medications - Amitriptyline - B12 injections - Cyclobenzaprine - Omeprazole - Meclizine - Sumatriptan - Venlafaxine - Zofran (as needed for nausea) - Lovenox Stress The patient is experiencing significant stress due to her current living situation and financial instability. The overcrowded and unclean home environment, along with an inability to afford adequate housing, contributes to constant stress. Additionally, relationship issues with her boyfriend, who has been unfaithful and mismanaged their finances, further exacerbate her stressful circumstances. The patient niles by socially withdrawing to her room, where she keeps minimal basic amenities to sustain herself. Although she is on the list of [employer] for housing support, the situation remains unclear and unresolved, adding duration to her stress. Past Psychiatric History she has been referred to counseling and a psychiatrist, indicating prior involvement with mental health services. . Home Environment The patient lives in a challenging home environment, renting a room from a childhood acquaintance. The household is currently overcrowded, with several occupants contributing to a disorganized and unsanitary living space. The patient mostly remains in her room, which is equipped with essentials like a refrigerator, microwave, and air fryer. The responsibility of maintaining cleanliness falls heavily on her despite financial constraints, and she prefers to avoid common areas to reduce stress. Friends and Support Social support is limited; the patient relies on a small social network, including her boyfriend, who is also facing housing instability. Her relationship with her boyfriend is under strain and provides limited positive social reinforcement. Support from external networks such as community programs appears challenged by bureaucracy and waiting lists, leading the patient to feel a lack of meaningful support structures. Substance Use The patient denies current substance use, indicating she has considered using marijuana for pain relief but does not due to financial constraints. Counseling I provided counseling with recommendations to maintain open communication with her social science professor and to continue her engagement in counseling and psychiatric care as facilitated by the healthcare provider. Resources for financial and housing advice were discussed including staying actively involved with [employer] and exploring other potential housing assistance programs. Additionally, I advised her on setting clear boundaries with her partner to manage her finances and emotional health. Employment - The patient is not currently employed, and her primary source of income is her Social Security benefits. - She is experiencing financial insecurity with a monthly income of $401. Diet History The patient describes minimalistic eating habits primarily dictated by financial constraints and stress-related nausea, resulting in small meal portions throughout the day. She reports feeling nauseous when eating larger meals, necessitating frequent small snacks. Despite an effort to maintain hydration, other specific dietary choices or preferences are not discussed. Patient Instructions - Continue engagement with counseling and psychiatric services. - Maintain open communication with social workers and community resource programs for financial and housing assistance. - Monitor personal finances and establish firm boundaries with her partner regarding financial contributions and conduct. - medications refilled for next 3 months - referral placed to gastroenterology for further management of lack of appetite, chronic nausea and chronic GERD Follow-up 3 months Orders: Orders LDL Cholesterol Direct Today D63.8 - Anemia in other chronic diseases classified elsewhere, D68.61 - Antiphospholipid syndrome, E53.8 - Deficiency of other specified B group vitamins, F33.41 - Major depressive disorder, recurrent, in partial remission, F41.1 - Generalized anxiety disorder, G89.4 - Chronic pain syndrome, M54.12 - Radiculopathy, cervical region, R10.13 - Epigastric pain, Z59.00 - Homelessness unspecified TSH reflex Free T4 Today D63.8 - Anemia in other chronic diseases classified elsewhere, D68.61 - Antiphospholipid syndrome, E53.8 - Deficiency of other specified B group vitamins, F33.41 - Major depressive disorder, recurrent, in partial remission, F41.1 - Generalized anxiety disorder, G89.4 - Chronic pain syndrome, M54.12 - Radiculopathy, cervical region, R10.13 - Epigastric pain, Z59.00 - Homelessness unspecified Comprehensive Met. Panel Today D63.8 - Anemia in other chronic diseases classified elsewhere, D68.61 - Antiphospholipid syndrome, E53.8 - Deficiency of other specified B group vitamins, F33.41 - Major depressive disorder, recurrent, in partial remission, F41.1 - Generalized anxiety disorder, G89.4 - Chronic pain syndrome, M54.12 - Radiculopathy, cervical region, R10.13 - Epigastric pain, Z59.00 - Homelessness unspecified Vitamin D 25-OH (D2 and D3) Today D63.8 - Anemia in other chronic diseases classified elsewhere, D68.61 - Antiphospholipid syndrome, E53.8 - Deficiency of other specified B group vitamins, F33.41 - Major depressive disorder, recurrent, in partial remission, F41.1 - Generalized anxiety disorder, G89.4 - Chronic pain syndrome, M54.12 - Radiculopathy, cervical region, R10.13 - Epigastric pain, Z59.00 - Homelessness unspecified Medications: Changed From ondansetron HCl 4 mg PO Q8H 7 days PRN 14 tabs 0RF nausea and vomiting R11.0 - Nausea To ondansetron HCl 4 mg PO .qd 90 days PRN 90 tabs 0RF nausea and vomiting R11.0 - Nausea Refilled alprazolam 0.5 mg PO BID-TID 30 days 90 tabs 2RF anxiety F41.1 - Generalized anxiety disorder meclizine 25 mg PO DAILY 90 days PRN 90 tabs 0RF dizziness sumatriptan succinate 25 mg PO DAILY 30 days PRN 9 tabs 2RF for migraine amitriptyline 25 mg PO BEDTIME 90 days 90 tabs 0RF G43.909 - Migraine, unspecified, not intractable, without status migrainosus cyclobenzaprine 5 mg PO .qhs PRN 90 tabs 0RF muscle spasm G89.4 - Chronic pain syndrome, R52 - Pain, unspecified
== END 2024-05-21 14:01 | disposition home or self-care (01) ==
LOC: HO.HMCC 13:37
PROVIDERS: PCP Internal Medicine; Visit Provider Internal Medicine
DX: M54.12 Radiculopathy, cervical region (principal); F33.41 Major depressive disorder, recurrent, in partial remission; D68.61 Antiphospholipid syndrome; Z59.00 Homelessness unspecified; D63.8 Anemia in other chronic diseases classified elsewhere; E53.8 Deficiency of other specified B group vitamins; F41.1 Generalized anxiety disorder; G89.4 Chronic pain syndrome; R10.13 Epigastric pain; R11.0 Nausea; Z59.9 Problem related to housing and economic circumstances, unspecified; R45.7 State of emotional shock and stress, unspecified

== ENCOUNTER 2024-08-14 08:21 | Outpatient (AMB) | payer MEDICAID, SELFPAY ==
--- NOTE | 2024-08-14 08:47 | MHC.PC.OV ---
Intake Visit Reasons: tv follow up meds Allergies penicillin V Allergy (Unknown, Verified 05/21/24 13:46) unknown - childhood Penicillins Allergy (Unknown, Verified 05/21/24 13:46) unknown Medication List - Last Reconciled 08/14/24 by Latrell Restrepo MD alprazolam 0.5 mg PO BID-TID 30 days amitriptyline 25 mg PO BEDTIME 90 days cyanocobalamin (vitamin B-12) 1,000 mcg subcut Q4W 30 days cyclobenzaprine 5 mg PO .qhs PRN enoxaparin (Lovenox) 60 mg (0.6 mL) subcut Q12H enoxaparin 60 mg (0.6 mL) subcut Q12H meclizine 25 mg PO DAILY PRN 90 days omeprazole 20 mg PO DAILY 90 days ondansetron HCl 4 mg PO .qd PRN 90 days sumatriptan succinate 25 mg PO DAILY PRN 30 days venlafaxine ER 225 mg (3 x 75 mg) PO DAILY 90 days Tobacco use date assessed: 05/21/24 Dental Screening Dental Screen Date: 05/21/24 HPI tv follow up meds HPI Details History - The patient is a 54-year-old female presenting with a request for medication refill, specifically alprazolam. - She reports ongoing issues with stress, which she identifies as a prominent cause of her headaches and neck pain. - She experiences stability in her symptoms, with no changes noted recently. Medical History: - Anxiety disorder - Major depressive disorder - Migraine headaches - Cervical spinal pain and spasm - Clotting disorder - Chronic vertigo - Chronic nausea - Difficulty gaining weight - Chronic gastroesophageal reflux disease (GERD) Medications: - Amitriptyline - Vitamin B12 injection - Cyclobenzaprine - Omeprazole - Nausea medication - Sumatriptan - Venlafaxine - Zofran (as needed) - Lovenox, prescribed by hematology - Alprazolam 0.5 mg, taken up to twice to three times a day Social History: - The patient is currently experiencing difficulties with housing and has yet to relocate. - She has emotional stressors but maintains participation in counseling. Problem List - Anxiety disorder - Major depressive disorder - Migraine headaches - Clotting disorder - Cervical spinal pain and spasm - Chronic vertigo - Chronic GERD Patient Instructions - alprazolam refill sent for 3 months - Set up a follow-up appointment for three months, alternating in-office visits with phone consultations. Review of Systems - General: No fever no chills - Ear nose throat: No sore throat no hearing difficulty no ear pain - Cardiovascular: No syncope, no chest pain, no palpitations - Endocrine: No polyuria polydipsia no heat intolerance - Genitourinary: No dysuria , no blood in urine PFSH Medical History Knee pain, right Irregular menses Chronic pain Anxiety, generalized Hx of Sjogren's disease Radiculopathy, cervical region Antiphospholipid syndrome Major depression, recurrent Dyspepsia History of DVT (deep vein thrombosis) Lupus (systemic lupus erythematosus) Pain management Surgical History Hx of cholecystectomy History of salpingectomy H/O LEEP Family History Father Healthy male adult Mother Healthy female Maternal Grandfather Heart disease HTN (hypertension) Maternal Grandmother Breast cancer Paternal Grandfather No problems noted. Paternal Grandmother Breast cancer Diabetes mellitus Brother No problems noted. Sister No problems noted. Son No problems noted. Son No problems noted. Other Substance use disorder Social History Housing: Apartment Alcohol intake: current Alcohol intake frequency: a few times a month Patient Tobacco Use Status: Former Tobacco user Tobacco use type: Cigarette e-Cigarette/Vaping Use: Never Used Second Hand Smoke Exposure: No service: No Current occupational status: unemployed Current occupational exposures/hazards: No Cognitive needs: No Hearing needs: No Vision needs: No Female Reproductive History Menstrual Age of Menarche: 14 Questionnaire Thrive Questionnaire Date Thrive assessed: 05/21/24 FAMILIA-7 AMB Questionnaire FAMILIA-7 Date FAMILIA - 7 assessed: 05/21/24 Source: Developed by Drs. Savage Ambriz, Annika Hansen, Chilo Zheng and colleagues, with an educational prince from [employer] Physical exam (Primary Care) Tobacco/Smoking Status: Tobacco use Status Tobacco use date assessed 05/21/24 08/14/24 08:48 Patient Tobacco Use Status Former Tobacco user 08/14/24 08:48 Tobacco use type Cigarette 08/14/24 08:48 e-Cigarette/Vaping Use Never Used 08/14/24 08:48 Thrive Assessment: Date of Thrive Assessment Date Thrive assessed 05/21/24 08/14/24 08:48 Telehealth Telehealth Telehealth Platform: [facility] Location of provider rendering services: practice address Location of patient: address on file Patient Identification confirmed using: Name, : Yes Telehealth method: video Patient verbally consented to treatment: Yes Patient verbally consented to billing insurance company: Yes Patient informed of any privacy concerns related to visit: Yes Minutes spent on Phone/Video with Pt.: 13 Coding Level of Care Code Tele Est Pt Level 3 (85391) Diagnoses Homeless Z59.00 Recurrent major depressive disorder, in partial remission F33.41 Active/Remission status: in partial remission Anxiety, generalized F41.1 Financial difficulties Z59.9 Assessment & Plan Assessment & Plan (1) Homeless: Code(s): Z59.00 - Homelessness unspecified Category: Social Hx (2) Major depression, recurrent: Code(s): F33.9 - Major depressive disorder, recurrent, unspecified Category: Medical Qualifiers: Active/Remission status: in partial remission Qualified Code(s): F33.41 - Major depressive disorder, recurrent, in partial remission (3) Anxiety, generalized: Code(s): F41.1 - Generalized anxiety disorder Category: Medical (4) Financial difficulties: Code(s): Z59.9 - Problem related to housing and economic circumstances, unspecified Category: Social Hx Plan History - The patient is a 54-year-old female presenting with a request for medication refill, specifically alprazolam. - She reports ongoing issues with stress, which she identifies as a prominent cause of her headaches and neck pain. - She experiences stability in her symptoms, with no changes noted recently. Medical History: - Anxiety disorder - Major depressive disorder - Migraine headaches - Cervical spinal pain and spasm - Clotting disorder - Chronic vertigo - Chronic nausea - Difficulty gaining weight - Chronic gastroesophageal reflux disease (GERD) Medications: - Amitriptyline - Vitamin B12 injection - Cyclobenzaprine - Omeprazole - Nausea medication - Sumatriptan - Venlafaxine - Zofran (as needed) - Lovenox, prescribed by hematology - Alprazolam 0.5 mg, taken up to twice to three times a day Social History: - The patient is currently experiencing difficulties with housing and has yet to relocate. - She has emotional stressors but maintains participation in counseling. Problem List - Anxiety disorder - Major depressive disorder - Migraine headaches - Clotting disorder - Cervical spinal pain and spasm - Chronic vertigo - Chronic GERD Patient Instructions - alprazolam refill sent for 3 months - Set up a follow-up appointment for three months, alternating in-office visits with phone consultations. Medications: Refilled alprazolam 0.5 mg PO BID-TID 90 tabs 2RF anxiety 30 days F41.1 - Generalized anxiety disorder
== END 2024-08-14 09:10 | disposition home or self-care (01) ==
LOC: HO.HMCC 08:21
PROVIDERS: PCP Internal Medicine; Visit Provider Internal Medicine
DX: F33.41 Major depressive disorder, recurrent, in partial remission (principal); F41.1 Generalized anxiety disorder; Z59.00 Homelessness unspecified; Z59.9 Problem related to housing and economic circumstances, unspecified

== ENCOUNTER 2024-10-08 15:04 | Outpatient (AMB) | payer MEDICAID, SELFPAY ==
[2024-10-08 15:06] VITALS: BP 110/70; PULSE 97; O2SAT 98; BMI 18.2
--- NOTE | 2024-10-08 15:06 | A.OFFPC_ITS ---
Vital Signs 10/08/24 15:06 Height 5 ft 2 in Weight 99 lb 6 oz BMI 18.2 BP 110/70 Blood Pressure Location Lt brachial Position Sitting Pulse 97 Pulse Source Pulse Oximeter Pulse Oximetry (%) 98 Oxygen Delivery Method Room Air Intake Visit Reasons: 2 mon - med follow up Allergies penicillin V Allergy (Unknown, Verified 10/08/24 15:06) unknown - childhood Penicillins Allergy (Unknown, Verified 10/08/24 15:06) unknown Medication List - Last Reconciled 10/08/24 by Latrell Restrepo MD alprazolam 0.5 mg PO BID-TID 30 days amitriptyline 25 mg PO BEDTIME 90 days cyanocobalamin (vitamin B-12) 1,000 mcg subcut Q4W 30 days cyclobenzaprine 5 mg PO .qhs PRN enoxaparin (Lovenox) 60 mg (0.6 mL) subcut Q12H enoxaparin 60 mg (0.6 mL) subcut Q12H meclizine 25 mg PO DAILY PRN 90 days omeprazole 20 mg PO DAILY 90 days ondansetron HCl 4 mg PO .qd PRN 90 days sumatriptan succinate 25 mg PO DAILY PRN 30 days venlafaxine ER 225 mg (3 x 75 mg) PO DAILY 90 days Tobacco use date assessed: 05/21/24 Dental Screening Dental Screen Date: 05/21/24 HPI 2 mon - med follow up HPI Details History The patient is a 54-year-old female presenting for three-month follow-up appointment on medication refill. Anemia: - The patient's hemoglobin level was not ed to be 10.8 g/dL in May, consistent with iron deficiency anemia. - Previously recorded hemoglobin level w as 11.7 g/dL the year prior. - The patient reports a long-standing hi story of iron deficiency. . Vitamin B12 Levels: - Vitamin B12 was noted to be elevated a t 1800 pg/mL in May, significantly above the standard range. - Patient reports not having administere d Vitamin B12 due to a lack of needles for injection. Depression and Anxiety: - Depression is reported to be persisten tly severe, exacerbated by unstable living conditions. - The patient is experiencing significan t emotional stress due to housing issues and financial difficulties. - Depression is described as bad, impl jadon limited improvement. No suicidal ideation Chronic Conditions: - This includes systemic lupus erythemat osus, migraine headaches, and antiphospholipid syndrome. - There was no discussion regarding exac erbation or improvement of these chronic conditions. Medications: - Alprazolam for anxiety - Amitriptyline for depression/migraine prophylaxis - Cyclobenzaprine for muscle spasm - Meclizine for vertigo - Omeprazole for gastric issues - Sumatriptan for migraine acute treatme nt - Venlafaxine for depression/anxiety - Lovenox (enoxaparin) as needed for DVT prophylaxis Social History: - Patient is currently homeless and andres ng in unstable housing conditions. - Living situation significantly contrib utes to patient's emotional distress. - Unable to gain weight Problem List - Systemic lupus erythematosus - Antiphospholipid syndrome - Severe depression - Migraine headaches - Vitamin B12 deficiency - Anemia of chronic disease - Chronic pain - History of deep vein thrombosis Diagnostic results - Lab: Hemoglobin level at 10.8 g/dL ind icating persistent anemia - Lab: Vitamin B12 level at 1800 pg/mL i ndicating elevated status [facility] - Patient is established with hematology [facility] [place] Patient Instructions - Get your blood test done today?no fast ing required. - Make sure to stop at computer help desk representative for sc heduling your next appointment. - Discuss any housing support options; s [place] daily assistance from services if possible. - Try to maintain mental health stabilit y by maintaining regular contact with resources. Continue medications, alprazolam script sent for next three-month, follow-up 3 months Review of Systems General: No fever no chills ear nose throat: No sore throat no hearing difficulty no ear pain cardiovascular: No syncope, no chest pain, no palpitations gastrointestinal: No nausea vomiting or diarrhea endocrine: No polyuria polydipsia no heat intolerance genitourinary: No dysuria skin: No new complaints Physical Exam general: No acute distress HEENT: No acute findings neck: Supple respiratory system: Able to talk in full sentences, no audible wheeze no stridor cardiovascular: S1-S2 RRR gastrointestinal: No pain, no nausea or vomiting extremities: No new findings INDUSTRIAL SECURITY ANALYST: Alert awake oriented x3 motor sensory intact skin: Normal turgor [facility] Medical History Knee pain, right Irregular menses Chronic pain Anxiety, generalized Hx of Sjogren's disease Radiculopathy, cervical region Antiphospholipid syndrome Major depression, recurrent Dyspepsia History of DVT (deep vein thrombosis) Lupus (systemic lupus erythematosus) Pain management Surgical History Hx of cholecystectomy History of salpingectomy H/O LEEP Family History Father Healthy male adult Mother Healthy female Maternal Grandfather Heart disease HTN (hypertension) Maternal Grandmother Breast cancer Paternal Grandfather No problems noted. Paternal Grandmother Breast cancer Diabetes mellitus Brother No problems noted. Sister No problems noted. Son No problems noted. Son No problems noted. Other Substance use disorder Social History Housing: Apartment Alcohol intake: current Alcohol intake frequency: a few times a month Patient Tobacco Use Status: Former Tobacco user Tobacco use type: Cigarette e-Cigarette/Vaping Use: Never Used Second Hand Smoke Exposure: No service: No Current occupational status: unemployed Current occupational exposures/hazards: No Cognitive needs: No Hearing needs: No Vision needs: No Female Reproductive History Menstrual Age of Menarche: 14 Questionnaire PHQ-9 Over the last 2 weeks, how often have you been bothered by any of the following problems? 1. Little interest or pleasure in doing things: more than half the days 2. Feeling down, depressed, or hopeless: nearly every day 3. Trouble falling or staying asleep, or sleeping too much: nearly every day 4. Feeling tired or having little energy: nearly every day 5. Poor appetite or overeating: not at all 6. Feeling bad about yourself - or that you are a failure or have let yourself or your family down: more than half the days 7. Trouble concentrating on things, such as reading the newspaper or watching television: more than half the days 8. Moving or speaking so slowly that other people could have noticed. Or the opposite - being so fidgety or restless that you have been moving around a lot more than usual: several days 9. Thoughts that you would be better off or of hurting yourself in some way: several days Total score: 17 Depression Screening Interpretation: Positive Depression Screening Done: Yes [id number] - PHQ-9 Billing: Yes Source: Developed by Drs. Savage Ambriz, Annika Hansen, Chilo Zheng and colleagues, with an educational prince from [employer]. Thrive Questionnaire Date Thrive assessed: 10/08/24 I am a: Patient What is your living situation today?: I do not have a steady places to live I am temporarily staying with others Within the past 12 months, did the food you bought not last and you didn't have the money to get more?: Sometimes True Within the past 12 months, did you worry whether your food would run out before you got money to buy more?: Sometimes True Do you have trouble paying for medicines?: No Do you have trouble getting transportation to medical appointments?: Yes Do you have trouble paying your heating and electricity bill?: No Do you have trouble taking care of your child, family member or friend?: No Do you have trouble with day-to-day activities such as bathing, preparing meals, shopping, managing finances, etc.?: Yes Are you currently unemployed and looking for a job?: No Are you interested in more education?: No Please select the resources that you would like help with: Housing/Long-Term, Food, Paying for medicine, Transportation, Utilities and Daily support Currently or been in a relationship where the following occur: I choose not to answer THRIVE Score: 4 AUDIT C Alcohol Use Questionnaire (AUDIT-C) 1. How often do you have a drink containing alcohol?: 2-4 times a month 2. How many drinks containing alcohol do you have on a typical day when you are drinking?: 1 or 2 3. How often do you have six or more drinks on one occasion?: Never Total Score: 2 Score Reviewed/Action Taken: Yes FAMILIA-7 AMB Questionnaire FAMILIA-7 Date FAMILIA - 7 assessed: 10/08/24 Feeling nervous, anxious, or on edge: 2 = More than half the days Not being able to stop or control worryin = Nearly every day Worrying too much about different things: 3 = Nearly every day Trouble relaxin = Nearly every day Being so restless that it is hard to sit still: 1 = Several days Becoming easily annoyed or irritable: 1 = Several days Feeling afraid as if something awful might happen: 1 = Several days Total FAMILIA-7 score (0-4 normal; 5-9 mild; 10-14 moderate; 15-21 severe): 14 Source: Developed by Drs. Savage Ambriz, Annika Hansen, Chilo Zheng and colleagues, with an educational prince from [employer]. FAMILIA-7 Assessment Billing FAMILIA-7 Assessment Tool: FAMILIA-7 Assessment 86315 Physical exam (Primary Care) Vital Signs: Last Vital Signs Pulse 97 10/08/24 15:06 BP 110/70 10/08/24 15:06 Pulse Ox 98 10/08/24 15:06 Oxygen Delivery Method Room Air 10/08/24 15:06 BMI result Body Mass Index 18.2 Tobacco/Smoking Status: Tobacco use Status Tobacco use date assessed 05/21/24 10/08/24 15:07 Patient Tobacco Use Status Former Tobacco user 10/08/24 15:07 Tobacco use type Cigarette 10/08/24 15:07 e-Cigarette/Vaping Use Never Used 10/08/24 15:07 PHQ-9: PHQ-9 Score PHQ-9: Total score 17 10/08/24 16:39 Depression Screening Interpretation: Positive Thrive Assessment: Date of Thrive Assessment Date Thrive assessed 10/08/24 10/08/24 16:39 Currently or been in a relationship where the following occur: I choose not to answer Coding Level of Care Code Est Pt Level 5 (18076) Diagnoses Homeless Z59.00 Financial difficulties Z59.9 Recurrent major depressive disorder, in partial remission F33.41 Active/Remission status: in partial remission Anxiety, generalized F41.1 Antiphospholipid syndrome D68.61 B12 deficiency E53.8 Dyspepsia R10.13 Anemia of chronic disease D63.8 Other systemic lupus erythematosus with other organ involvement M32.19 Systemic lupus erythematosus organ involvement: other Systemic lupus erythematosus type: other Intractable periodic headache syndrome G43.C1 Intractability: intractable Migraine type: periodic headache syndrome 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 Additional Codes FAMILIA-7 Assessment Billing - FAMILIA-7 Assessment Tool: FAMILIA-7 Assessment 34676 ([id number]) PHQ-9 - 74421 - PHQ-9 Billing: Yes ([id number]) Time Spent (min) 40 Comment Reviewing chart/labs/vcov-mj-ilhq with the patient/coordination of care Assessment & Plan Assessment & Plan (1) Homeless: Code(s): Z59.00 - Homelessness unspecified Category: Social Hx (2) Financial difficulties: Code(s): Z59.9 - Problem related to housing and economic circumstances, unspecified Category: Social Hx (3) Major depression, recurrent: Code(s): F33.9 - Major depressive disorder, recurrent, unspecified Category: Medical Qualifiers: Active/Remission status: in partial remission Qualified Code(s): F33.41 - Major depressive disorder, recurrent, in partial remission (4) Anxiety, generalized: Code(s): F41.1 - Generalized anxiety disorder Category: Medical (5) Antiphospholipid syndrome: Code(s): D68.61 - Antiphospholipid syndrome Category: Medical (6) B12 deficiency: Code(s): E53.8 - Deficiency of other specified B group vitamins Category: Medical (7) Dyspepsia: Code(s): R10.13 - Epigastric pain Category: Medical (8) Anemia of chronic disease: Code(s): D63.8 - Anemia in other chronic diseases classified elsewhere Category: Medical (9) Lupus (systemic lupus erythematosus): Code(s): M32.9 - Systemic lupus erythematosus, unspecified Category: Medical Qualifiers: Systemic lupus erythematosus organ involvement: other Systemic lupus erythematosus type: other Qualified Code(s): M32.19 - Other organ or system involvement in systemic lupus erythematosus (10) Migraine headache: Code(s): G43.909 - Migraine, unspecified, not intractable, without status migrainosus Category: Medical Qualifiers: Intractability: intractable Migraine type: periodic headache syndrome Qualified Code(s): G43.C1 - Periodic headache syndromes in child or adult, intractable (11) DJD (degenerative joint disease) of cervical spine: Code(s): M47.812 - Spondylosis without myelopathy or radiculopathy, cervical region Category: Medical Qualifiers: 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 Anemia: - The patient's hemoglobin level was noted to be 10.8 g/dL in May, consistent with iron deficiency anemia. - Previously recorded hemoglobin level was 11.7 g/dL the year prior. - The patient reports a long-standing history of iron deficiency. . Vitamin B12 Levels: - Vitamin B12 was noted to be elevated at 1800 pg/mL in May, significantly above the standard range. - Patient reports not having administered Vitamin B12 due to a lack of needles for injection. Depression and Anxiety: - Depression is reported to be persistently severe, exacerbated by unstable living conditions. - The patient is experiencing significant emotional stress due to housing issues and financial difficulties. - Depression is described as bad, implying limited improvement. No suicidal ideation Chronic Conditions: - This includes systemic lupus erythematosus, migraine headaches, and antiphospholipid syndrome. - There was no discussion regarding exacerbation or improvement of these chronic conditions. Medications: - Alprazolam for anxiety - Amitriptyline for depression/migraine prophylaxis - Cyclobenzaprine for muscle spasm - Meclizine for vertigo - Omeprazole for gastric issues - Sumatriptan for migraine acute treatment - Venlafaxine for depression/anxiety - Lovenox (enoxaparin) as needed for DVT prophylaxis Social History: - Patient is currently homeless and living in unstable housing conditions. - Living situation significantly contributes to patient's emotional distress. - Unable to gain weight Problem List - Systemic lupus erythematosus - Antiphospholipid syndrome - Severe depression - Migraine headaches - Vitamin B12 deficiency - Anemia of chronic disease - Chronic pain - History of deep vein thrombosis Diagnostic results - Lab: Hemoglobin level at 10.8 g/dL indicating persistent anemia - Lab: Vitamin B12 level at 1800 pg/mL indicating elevated status [facility] - Patient is established with hematology [facility] [place] Patient Instructions - Get your blood test done today?no fasting required. - Make sure to stop at computer help desk representative for scheduling your next appointment. - Discuss any housing support options; seek daily assistance from services if possible. - Try to maintain mental health stability by maintaining regular contact with resources. - patient is homeless, message sent to behavior health coordinator to reach out to patient for assistance Continue medications, alprazolam script sent for next three-month, follow-up 3 months Orders: Orders Comprehensive Met. Panel 10/08/24 D63.8 - Anemia in other chronic diseases classified elsewhere, D68.61 - Antiphospholipid syndrome, E53.8 - Deficiency of other specified B group vitamins, F33.41 - Major depressive disorder, recurrent, in partial remission, F41.1 - Generalized anxiety disorder, G43.C1 - Periodic headache syndromes in child or adult, intractable, M32.19 - Other organ or system involvement in systemic lupus erythematosus, M47.812 - Spondylosis with out myelopathy or radiculopathy, cervical region, R10.13 - Epigastric pain, Z59.00 - Homelessness unspecified, Z59.9 - Problem related to housing and economic circumstances, unspecified LDL Cholesterol Direct 10/08/24 D63.8 - Anemia in other chronic diseases classified elsewhere, D68.61 - Antiphospholipid syndrome, E53.8 - Deficiency of other specified B group vitamins, F33.41 - Major depressive disorder, recurrent, in partial remission, F41.1 - Generalized anxiety disorder, G43.C1 - Periodic headache syndromes in child or adult, intractable, M32.19 - Other organ or system involvement in systemic lupus erythematosus, M47.812 - Spondylosis without myelopathy or radiculopathy, cervical region, R10.13 - Epigastric pain, Z59.00 - Homelessness unspecified, Z59.9 - Problem related to housing and economic circumstances, unspecified Vitamin D 25-OH (D2 and D3) 10/08/24 D63.8 - Anemia in other chronic diseases classified elsewhere, D68.61 - Antiphospholipid syndrome, E53.8 - Deficiency of other specified B group vitamins, F33.41 - Major depressive disorder, recurrent, in partial remission, F41.1 - Generalized anxiety disorder, G43.C1 - Periodic headache syndromes in child or adult, intractable, M32.19 - Other organ or system involvement in systemic lupus erythematosus, M47.812 - Spondylosis without myelopathy or radiculopathy, cervical region, R10.13 - Epigastric pain, Z59.00 - Homelessness unspecified, Z59.9 - Problem related to housing and economic circumstances, unspecified Drug Screen Urine 10/08/24 D63.8 - Anemia in other chronic diseases classified elsewhere, D68.61 - Antiphospholipid syndrome, E53.8 - Deficiency of other specified B group vitamins, F33.41 - Major depressive disorder, recurrent, in partial remission, F41.1 - Generalized anxiety disorder, G43.C1 - Periodic headache syndromes in child or adult, intractable, M32.19 - Other organ or system involvement in systemic lupus erythematosus, M47.812 - Spondylosis without myelopathy or radiculopathy, cervical region, R10.13 - Epigastric pain, Z59.00 - Homelessness unspecified, Z59.9 - Problem related to housing and economic circumstances, unspecified Complete Blood Count Auto Diff 10/08/24 D63.8 - Anemia in other chronic diseases classified elsewhere, D68.61 - Antiphospholipid syndrome, E53.8 - Deficiency of other specified B group vitamins, F33.41 - Major depressive disorder, recurrent, in partial remission, F41.1 - Generalized anxiety disorder, G43.C1 - Periodic headache syndromes in child or adult, intractable, M32.19 - Other organ or system involvement in systemic lupus erythematosus, M47.812 - Spondylosis without myelopathy or radiculopathy, cervical region, R10.13 - Epigastric pain, Z59.00 - Homelessness unspecified, Z59.9 - Problem related to housing and economic circumstances, unspecified Ferritin 10/08/24 D63.8 - Anemia in other chronic diseases classified elsewhere, D68.61 - Antiphospholipid syndrome, E53.8 - Deficiency of other specified B group vitamins, F33.41 - Major depressive disorder, recurrent, in partial remission, F41.1 - Generalized anxiety disorder, G43.C1 - Periodic headache syndromes in child or adult, intractable, M32.19 - Other organ or system involvement in systemic lupus erythematosus, M47.812 - Spondylosis without myelopathy or radiculopathy, cervical region, R10.13 - Epigastric pain, Z59.00 - Homelessness unspecified, Z59.9 - Problem related to housing and economic circumstances, unspecified TSH reflex Free T4 10/08/24 D63.8 - Anemia in other chronic diseases classified elsewhere, D68.61 - Antiphospholipid syndrome, E53.8 - Deficiency of other specified B group vitamins, F33.41 - Major depressive disorder, recurrent, in partial remission, F41.1 - Generalized anxiety disorder, G43.C1 - Periodic headache syndromes in child or adult, intractable, M32.19 - Other organ or system involvement in systemic lupus erythematosus, M47.812 - Spondylosis without myelopathy or radiculopathy, cervical region, R10.13 - Epigastric pain, Z59.00 - Homelessness unspecified, Z59.9 - Problem related to housing and economic circumstances, unspecified Vitamin B12 10/08/24 D63.8 - Anemia in other chronic diseases classified elsewhere, D68.61 - Antiphospholipid syndrome, E53.8 - Deficiency of other specified B group vitamins, F33.41 - Major depressive disorder, recurrent, in partial remission, F41.1 - Generalized anxiety disorder, G43.C1 - Periodic headache syndromes in child or adult, intractable, M32.19 - Other organ or system involvement in systemic lupus erythematosus, M47.812 - Spondylosis without myelopathy or radiculopathy, cervical region, R10.13 - Epigastric pain, Z59.00 - Homelessness unspecified, Z59.9 - Problem related to housing and economic circumstances, unspecified
== END 2024-10-08 15:55 | disposition home or self-care (01) ==
LOC: HO.HMCC 15:05
PROVIDERS: PCP Internal Medicine; Visit Provider Internal Medicine
DX: F33.41 Major depressive disorder, recurrent, in partial remission (principal); Z59.00 Homelessness unspecified; D68.61 Antiphospholipid syndrome; M32.19 Other organ or system involvement in systemic lupus erythematosus; F41.1 Generalized anxiety disorder; Z59.9 Problem related to housing and economic circumstances, unspecified; E53.8 Deficiency of other specified B group vitamins; R10.13 Epigastric pain; D63.8 Anemia in other chronic diseases classified elsewhere; G43.C1 Periodic headache syndromes in child or adult, intractable; M47.812 Spondylosis without myelopathy or radiculopathy, cervical region

== ENCOUNTER → 2024-10-08 15:04 | Outpatient (BNVA) | payer MEDICAID, SELFPAY | PROVIDERS: PCP Internal Medicine; Visit Provider Internal Medicine | DX: R10.13 Epigastric pain (principal); F41.9 Anxiety disorder, unspecified; F33.41 Major depressive disorder, recurrent, in partial remission; F41.1 Generalized anxiety disorder; D68.61 Antiphospholipid syndrome; E53.8 Deficiency of other specified B group vitamins; D69.8 Other specified hemorrhagic conditions; M32.19 Other organ or system involvement in systemic lupus erythematosus; Z59.00 Homelessness unspecified; Z59.9 Problem related to housing and economic circumstances, unspecified | CPT/HCPCS: 96127; 99212 ==

== ENCOUNTER 2024-12-25 08:24 | Outpatient (AMB) | payer MEDICAID, SELFPAY ==
--- NOTE | 2024-12-25 09:15 | MHC.PC.OV ---
Intake Visit Reasons: 2 month follow up Allergies penicillin V Allergy (Unknown, Verified 10/08/24 15:06) unknown - childhood Penicillins Allergy (Unknown, Verified 10/08/24 15:06) unknown Medication List - Last Reconciled 12/25/24 by Latrell Restrepo MD alprazolam 0.5 mg PO BID-TID 30 days amitriptyline 25 mg PO BEDTIME 90 days cyanocobalamin (vitamin B-12) 1,000 mcg subcut Q4W 30 days cyclobenzaprine 5 mg PO .qhs PRN enoxaparin (Lovenox) 60 mg (0.6 mL) subcut Q12H enoxaparin 60 mg (0.6 mL) subcut Q12H meclizine 25 mg PO DAILY PRN 90 days omeprazole 20 mg PO DAILY 90 days ondansetron HCl 4 mg PO .qd PRN 90 days sumatriptan succinate 25 mg PO DAILY PRN 30 days venlafaxine ER 225 mg (3 x 75 mg) PO DAILY 90 days Tobacco use date assessed: 05/21/24 Dental Screening Dental Screen Date: 05/21/24 HPI HPI Comments History of Present Illness Details History of Present Illness The patient is a 54 year old individual presenting for medication refills and follow-up on chronic conditions. Anxiety: - The patient is treated for anxiety with alprazolam 0.5 mg, receiving 90 tablets with two refills every three months upon evaluation. - The patient is compliant with this treatment and shows no signs of medication abuse. Major Depression: - The patient has a history of major depression and is prescribed venlafaxine. Headache syndrome and Migraine: - The patient has a headache syndrome for which the patient takes amitriptyline. - The patient also takes sumatriptan as needed for migraine headaches. Antiphospholipid Syndrome and Lupus: - The patient has diagnoses of antiphospholipid syndrome and lupus. - For these conditions, the patient is on chronic Lovenox injections. - The patient is established with hematology at [facility] and is evaluated every three months. Gastroesophageal Reflux Disease (GERD): - The patient's GERD is treated with omeprazole 20 mg. Vitamin B12 Deficiency and Anemia: - The patient has a history of vitamin B12 deficiency and is on B12 injections. - A history of anemia was also noted. Vertigo: - The patient takes meclizine as needed for vertigo. Medical History: - Headache syndrome - Anxiety - Vitamin B12 deficiency - Vertigo - Gastroesophageal reflux disease (GERD) - Migraine headaches - Major depression - Anemia - Antiphospholipid syndrome - Lupus Social History: - The patient is homeless, which contributes to emotional stress. Diagnostic Results: The patient has not yet completed the ordered lab work. [facility] Medical History Knee pain, right Irregular menses Chronic pain Anxiety, generalized Hx of Sjogren's disease Radiculopathy, cervical region Antiphospholipid syndrome Major depression, recurrent Dyspepsia History of DVT (deep vein thrombosis) Lupus (systemic lupus erythematosus) Pain management Surgical History Hx of cholecystectomy History of salpingectomy H/O LEEP Family History Father Healthy male adult Mother Healthy female Maternal Grandfather Heart disease HTN (hypertension) Maternal Grandmother Breast cancer Paternal Grandfather No problems noted. Paternal Grandmother Breast cancer Diabetes mellitus Brother No problems noted. Sister No problems noted. Son No problems noted. Son No problems noted. Other Substance use disorder Social History Housing: Apartment Alcohol intake: current Alcohol intake frequency: a few times a month Patient Tobacco Use Status: Former Tobacco user Tobacco use type: Cigarette e-Cigarette/Vaping Use: Never Used Second Hand Smoke Exposure: No service: No Current occupational status: unemployed Current occupational exposures/hazards: No Cognitive needs: No Hearing needs: No Vision needs: No Female Reproductive History Menstrual Age of Menarche: 14 Questionnaire Thrive Questionnaire Date Thrive assessed: 10/08/24 I am a: Patient What is your living situation today?: I do not have a steady places to live I am temporarily staying with others Within the past 12 months, did the food you bought not last and you didn't have the money to get more?: Sometimes True Within the past 12 months, did you worry whether your food would run out before you got money to buy more?: Sometimes True Do you have trouble paying for medicines?: No Do you have trouble getting transportation to medical appointments?: Yes Do you have trouble paying your heating and electricity bill?: No Do you have trouble taking care of your child, family member or friend?: No Do you have trouble with day-to-day activities such as bathing, preparing meals, shopping, managing finances, etc.?: Yes Are you currently unemployed and looking for a job?: No Are you interested in more education?: No THRIVE Score: 4 FAMILIA-7 AMB Questionnaire FAMILIA-7 Date FAMILIA - 7 assessed: 10/08/24 Source: Developed by Drs. Savage Ambriz, Annika Hansen, Chilo Zheng and colleagues, with an educational prince from [employer]. Review of Systems Narrative Review of Systems - General: No fever no chills - Neurological: No headaches no dizziness - Ear nose throat: No sore throat no hearing difficulty no ear pain - Cardiovascular: No syncope, no chest pain, no palpitations - Gastrointestinal: No nausea vomiting or diarrhea - Endocrine: No polyuria polydipsia no heat intolerance - Genitourinary: No dysuria , no blood in urine Physical exam (Primary Care) Tobacco/Smoking Status: Tobacco use Status Tobacco use date assessed 05/21/24 12/25/24 09:15 Patient Tobacco Use Status Former Tobacco user 12/25/24 09:15 Tobacco use type Cigarette 12/25/24 09:15 e-Cigarette/Vaping Use Never Used 12/25/24 09:15 Thrive Assessment: Date of Thrive Assessment Date Thrive assessed 10/08/24 12/25/24 09:15 Narrative Telehealth Telehealth Telehealth Platform: [facility] Location of provider rendering services: practice address Location of patient: address on file Patient Identification confirmed using: Name, : Yes Telehealth method: video (attempted) Patient verbally consented to treatment: Yes Patient verbally consented to billing insurance company: Yes Patient informed of any privacy concerns related to visit: Yes Minutes spent on Phone/Video with Pt.: 14 Coding Level of Care Code Est Pt Level 3 (21821) Complex EM visit Add On G2211 Diagnoses Homeless Z59.00 Financial difficulties Z59.9 Recurrent major depressive disorder, in partial remission F33.41 Active/Remission status: in partial remission Anxiety, generalized F41.1 Antiphospholipid syndrome D68.61 B12 deficiency E53.8 Dyspepsia R10.13 Anemia of chronic disease D63.8 Other systemic lupus erythematosus with other organ involvement M32.19 Systemic lupus erythematosus type: other Systemic lupus erythematosus organ involvement: other Intractable periodic headache syndrome G43.C1 Migraine type: periodic headache syndrome Intractability: intractable 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 Assessment & Plan Assessment & Plan (1) Homeless: Code(s): Z59.00 - Homelessness unspecified Category: Social Hx (2) Financial difficulties: Code(s): Z59.9 - Problem related to housing and economic circumstances, unspecified Category: Social Hx (3) Major depression, recurrent: Code(s): F33.9 - Major depressive disorder, recurrent, unspecified Category: Medical Qualifiers: Active/Remission status: in partial remission Qualified Code(s): F33.41 - Major depressive disorder, recurrent, in partial remission (4) Anxiety, generalized: Code(s): F41.1 - Generalized anxiety disorder Category: Medical (5) Antiphospholipid syndrome: Code(s): D68.61 - Antiphospholipid syndrome Category: Medical (6) B12 deficiency: Code(s): E53.8 - Deficiency of other specified B group vitamins Category: Medical (7) Dyspepsia: Code(s): R10.13 - Epigastric pain Category: Medical (8) Anemia of chronic disease: Code(s): D63.8 - Anemia in other chronic diseases classified elsewhere Category: Medical (9) Lupus (systemic lupus erythematosus): Code(s): M32.9 - Systemic lupus erythematosus, unspecified Category: Medical Qualifiers: Systemic lupus erythematosus type: other Systemic lupus erythematosus organ involvement: other Qualified Code(s): M32.19 - Other organ or system involvement in systemic lupus erythematosus (10) Migraine headache: Code(s): G43.909 - Migraine, unspecified, not intractable, without status migrainosus Category: Medical Qualifiers: Migraine type: periodic headache syndrome Intractability: intractable Qualified Code(s): G43.C1 - Periodic headache syndromes in child or adult, intractable (11) DJD (degenerative joint disease) of cervical spine: Code(s): M47.812 - Spondylosis without myelopathy or radiculopathy, cervical region Category: Medical Qualifiers: 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 - The patient will proceed to get the required lab work done this afternoon. - Refills for alprazolam, venlafaxine, cyclobenzaprine, and amitriptyline will be sent to the pharmacy. - The patient was advised to ensure lab work is completed prior to the next appointment. - The patient will continue current management for chronic conditions, including B12 injections, meclizine PRN, omeprazole, sumatriptan PRN, and Lovenox injections. - The patient will continue to follow up with hematology every 3 months. Medications: Refilled alprazolam 0.5 mg PO BID-TID 90 tabs 2RF anxiety 30 days F41.1 - Generalized anxiety disorder amitriptyline 25 mg PO BEDTIME 90 tabs 0RF 90 days G43.909 - Migraine, unspecified, not intractable, without status migrainosus cyclobenzaprine 5 mg PO .qhs PRN 90 tabs 0RF muscle spasm G89.4 - Chronic pain syndrome, R52 - Pain, unspecified
== END 2024-12-25 13:47 | disposition home or self-care (01) ==
LOC: HO.HMCC 08:25
PROVIDERS: PCP Internal Medicine; Visit Provider Internal Medicine
DX: R10.13 Epigastric pain (principal); Z59.00 Homelessness unspecified; Z59.9 Problem related to housing and economic circumstances, unspecified; M32.19 Other organ or system involvement in systemic lupus erythematosus; F33.41 Major depressive disorder, recurrent, in partial remission; F41.1 Generalized anxiety disorder; D68.61 Antiphospholipid syndrome; E53.8 Deficiency of other specified B group vitamins; D63.8 Anemia in other chronic diseases classified elsewhere; G43.C1 Periodic headache syndromes in child or adult, intractable; M47.812 Spondylosis without myelopathy or radiculopathy, cervical region